=== PATIENT | male | born 1940 | race American Indian/Alaskan Native ===

== ENCOUNTER 2018-06-25 01:05 | Emergency (ER) | payer MEDICARE ==
[2018-06-25] MEDS ORDERED: SILVER NITRATE TP ONE (01:12)
--- NOTE | 2018-06-25 01:13 | Emergency Department Report ---
ED General Adult HPI - General Chief complaint: Medical Clearance Stated complaint: BLEEDING Time Seen by Provider: 06/25/18 01:13 Source: patient, EMS (verbal report received from EMS.ems notes not available at time of chart dictation), RN notes reviewed, old records reviewed Mode of arrival: Stretcher Limitations: Other (patient is a poor historian and has difficulty with hearing) - History of Present Illness Initial comments: This is a 77-year-old gentleman, unknown to this provider previously, on dialysis, reportedly Friday, Friday as per EMS, reported last dialysis session was yes, Friday, presenting to the emergency room with bleeding from left upper extremity fistula. The patient endorses no complaints at this time. In the emergency room, direct gentle pressure is applied to the bleeding fistula, which has a pinpoint area of bleeding. After 5 minutes of gentle direct digital pressure, leading resolved, and a 2 x 2 dressing is applied, with gentle cling wrap. Patient endorses no other complaints. -: Sudden Location: left, upper extremity Consistency: now resolved Improves with: other Associated Symptoms: denies other symptoms - Related Data Allergies Allergy/AdvReac Type Severity Reaction Status Date / Time No Known Allergies Allergy Unverified 06/19/18 18:01 ED Review of Systems ROS: Stated complaint: BLEEDING Other details as noted in HPI Constitutional: denies: fever Eyes: denies: vision change ENT: denies: epistaxis Respiratory: denies: cough Cardiovascular: denies: chest pain Gastrointestinal: denies: abdominal pain Genitourinary: denies: dysuria Musculoskeletal: denies: arthralgia Skin: denies: lesions Neurological: denies: weakness ED Past Medical Hx - Past Medical History Hx Hypertension: Yes Hx Congestive Heart Failure: No Hx Renal Disease: Yes (HD MWF) Additional medical history: afib on Coumadin - Surgical History Additional Surgical History: Hemodialysis shunt - Social History Smoking Status: Never Smoker Substance Use Type: None ED Physical Exam - General Limitations: Other (patient is a poor historian.) General appearance: alert, in no apparent distress - Head Head exam: Present: atraumatic, normocephalic - Eye Eye exam: Present: normal appearance, EOMI. Absent: nystagmus - ENT ENT exam: Present: normal exam, normal orophraynx, mucous membranes moist, n ormal external ear exam - Neck Neck exam: Present: normal inspection, full ROM. Absent: tenderness, meningismus - Respiratory Respiratory exam: Present: normal lung sounds bilaterally. Absent: respiratory distress - Cardiovascular Cardiovascular Exam: Present: regular rate, normal rhythm, normal heart sounds. Absent: bradycardia, tachycardia, irregular rhythm, systolic murmur, diastolic murmur, rubs, gallop - GI/Abdominal GI/Abdominal exam: Present: soft. Absent: distended, tenderness, guarding, rebound, rigid, pulsatile mass - Rectal Rectal exam: Present: deferred - Extremities Exam Extremities exam: Present: normal inspection (there is a left upper extremity fistula, pulsatile, nontender, with no redness, pus or streaking. Initially oozing, this is resolved with application of gentle direct digital pressure.), full ROM, other (2+ pulses noted in the bilateral upper, lower extremities. Compartments soft. No long bony tenderness. The pelvis is stable.). Absent: joint swelling, calf tenderness - Back Exam Back exam: Present: normal inspection, full ROM. Absent: tenderness, CVA tenderness (R), paraspinal tenderness, vertebral tenderness - Neurological Exam Neurological exam: Present: alert, other (Extraocular movements intact. Tongue midline. No facial droop. Facial sensation intact to light touch in the V1, V2, V3 distribution bilaterally. 5 and 5 strength in 4 extremities.. Sensation is intact to light touch in 4 extremities.). Absent: motor sensory deficit - Psychiatric Psychiatric exam: Present: normal affect, normal mood - Skin Skin exam: Present: warm, dry, intact, normal color. Absent: rash ED Course Vital Signs 06/25/18 06/25/18 01:17 01:18 Temperature 98.7 F 98.7 F Pulse Rate 70 70 Respiratory 20 20 Rate Blood Pressure 119/68 Blood Pressure 119/68 [Right] O2 Sat by Pulse 97 96 Oximetry ED Medical Decision Making - Lab Data Result diagrams: 06/25/18 01:21 06/25/18 01:21 Vital Signs 06/25/18 06/25/18 01:17 01:18 Temperature 98.7 F 98.7 F Pulse Rate 70 70 Respiratory 20 20 Rate Blood Pressure 119/68 Blood Pressure 119/68 [Right] O2 Sat by Pulse 97 96 Oximetry Lab Results 06/25/18 06/25/18 06/25/18 Range/Units 01:21 01:21 01:21 WBC 3.8 L (4.5-11.0) K/mm3 RBC 4.35 (3.65-5.03) M/mm3 Hgb 11.9 (11.8-15.2) gm/dl Hct 36.6 (35.5-45.6) % MCV 84 (84-94) fl MCH 27 L (28-32) pg MCHC 32 (32-34) % RDW 16.0 H (13.2-15.2) % Plt Count 104 L (140-440) K/mm3 PT 16.4 H (12.2-14.9) Sec. INR 1.24 H (0.87-1.13) APTT 29.7 (24.2-36.6) Sec. Sodium 141 (137-145) mmol/L Potassium 4.1 (3.6-5.0) mmol/L Chloride 96.3 L (98-107) mmol/L Carbon Dioxide 29 (22-30) mmol/L Anion Gap 20 mmol/L BUN 32 H (9-20) mg/dL Creatinine 4.8 H (0.8-1.5) mg/dL Estimated GFR 14 ml/min BUN/Creatinine Ratio 7 % Glucose 293 H (75-100) mg/dL Calcium 9.0 (8.4-10.2) mg/dL - Medical Decision Making Differential diagnosis, including not limited to: Thrombocytopenia, platelet dysfunction, supratherapeutic INR, uremic platelet dysfunction, resolved AV fistula bleeding Assessment and plan: 77-year-old gentleman with chronic-appearing laboratory abnormalities, no evidence of hyperkalemia or uremic encephalopathy, with resolved AV fistula bleeding. Patient is reassessed multiple times while here in the emergency department, he is afebrile, with reassuring vital signs, he appears to be in no acute distress, and his bleeding has subsequently resolved. The patient is medically suitable for discharge back to his halfway facility at this time. Critical care attestation.: If time is entered above; I have spent that time in minutes in the direct care of this critically ill patient, excluding procedure time. ED Disposition Clinical Impression: Hemorrhage of arteriovenous fistula Disposition: TO HOME OR SELFCARE Is pt being admited?: No Does the pt Need Aspirin: No Condition: Good Additional Instructions: Continue outpatient medications. Follow-up with your primary care doctor within the next 2 weeks. Follow up for dialysis on Friday as scheduled. If bleeding reoccurs, please apply gentle pressure with the tip of the fingertip, for 5-10 minutes. This typically decreases or stops bleeding. Please return to the emergency room right away with new, worsening or different symptoms. Referrals: ROBBI ARAUJO MD [Staff Physician] - 3-5 Days [facility] [Provider Group] - 3-5 Days
[2018-06-25 01:43] LABS: Hematocrit 36.6 % (35.5-45.6); Hemoglobin 11.9 gm/dl (11.8-15.2); Mean Corpuscular HGB Conc 32 % (32-34); Mean Corpuscular Volume 84 fl (84-94); Platelet Count 104 K/mm3 (140-440); Red Blood Count 4.35 M/mm3 (3.65-5.03)
[2018-06-25 01:57] LABS: INR 1.24 (0.87-1.13)
[2018-06-25 01:58] LABS: Partial Thromboplastin Time 29.7 Sec. (24.2-36.6)
[2018-06-25 03:12] VITALS: BP 153/80
== END 2018-06-25 03:39 | disposition home or self-care (01) ==
LOC: EDBD → ED 01:05
DX: T82.838A Hemorrhage due to vascular prosthetic devices, implants and grafts, initial encounter (principal); I12.0 Hypertensive chronic kidney disease with stage 5 chronic kidney disease or end stage renal disease; N18.6 End stage renal disease; Z99.2 Dependence on renal dialysis; Y92.89 Other specified places as the place of occurrence of the external cause
CPT/HCPCS: 36415; 80048; 85027; 85610; 85730

== ENCOUNTER 2018-09-16 22:46 | Observation (INO) | payer MEDICARE ==
--- NOTE | 2018-09-16 23:24 | Emergency Department Report ---
HPI - General Chief Complaint: Medical Clearance Time Seen by Provider: 09/16/18 23:05 - HPI HPI: 77-year-old -[place] male presents to the emergency department via EMS from home secondary to some bleeding from his left upper extremity AV fistula. The patient has end-stage renal disease on hemodialysis on Friday/Friday/Friday and did complete dialysis today. He says that there is no bleeding at the time he left dialysis but started bleeding at home. EMS was called and they placed a pressure dressing over the fistula. By the time he is at the emergency department the fistula has only a pinpoint area of bleeding/oozing. The patient is unable to tell me the name of his flash oven operator but says he goes to a [facility]. He has no complaints of any chest pain, shortness of breath, fever, nausea, vomiting or edema. ED Past Medical Hx - Past Medical History Previous Medical History?: Yes Hx Hypertension: Yes Hx Congestive Heart Failure: No Hx Renal Disease: Yes (HD MWF) Additional medical history: afib on Coumadin - Surgical History Past Surgical History?: Yes Additional Surgical History: Hemodialysis shunt - Social History Smoking Status: Never Smoker Substance Use Type: None ED Review of Systems ROS: Stated complaint: BLEEDING FROM DIALYSIS PORT Other details as noted in HPI Comment: All other systems reviewed and negative Constitutional: denies: chills, fever Eyes: denies: eye pain, vision change ENT: denies: ear pain, throat pain Respiratory: denies: cough, shortness of breath Cardiovascular: denies: chest pain, palpitations Gastrointestinal: denies: abdominal pain, vomiting Musculoskeletal: denies: back pain, arthralgia Skin: denies: rash, pruritus Neurological: denies: headache, weakness Hematological/Lymphatic: easy bleeding. denies: swollen glands Physical Exam - Physical Exam Vital Signs: Vital Signs 09/16/18 09/16/18 23:06 23:10 Temperature 98 F Pulse Rate 85 Respiratory 15 15 Rate Blood Pressure 153/76 Blood Pressure 153/76 [Right] O2 Sat by Pulse 91 91 Oximetry Physical Exam: GENERAL: The patient is well-developed well-nourished. HENT: Normocephalic. Atraumatic. Patient has moist mucous membranes. EYES: Extraocular motions are intact. NECK: Supple. Trachea is midline. CHEST/LUNGS: Clear to auscultation. There is no respiratory distress noted. HEART/CARDIOVASCULAR: Regular. There is no tachycardia. There is no murmur. ABDOMEN: Abdomen is soft, nontender. Patient has normal bowel sounds. There is no abdominal distention. SKIN: Skin is warm and dry. NEURO: The patient is awake, alert, and cooperative. The patient has no focal neurologic deficits. The patient has normal speech. MUSCULOSKELETAL: There is no tenderness or deformity. There is no limitation range of motion. There is a left upper extremity AV fistula that has an aneurysm but there is a palpable thrill and audible home. There is a punctate area of bleeding seen. ED Course Vital Signs 09/16/18 09/16/18 23:06 23:10 Temperature 98 F Pulse Rate 85 Respiratory 15 15 Rate Blood Pressure 153/76 Blood Pressure 153/76 [Right] O2 Sat by Pulse 91 91 Oximetry - Consultations Consultation #1: 09/17/18 04:19 I spoke with the flash oven operator on-call, Dr. Dozier, who says that they are happy to consult on the patient but the patient should have a vascular consult regarding the bleeding fistula. ED Medical Decision Making - Lab Data Result diagrams: 09/16/18 23:25 09/16/18 23:25 - Medical Decision Making This patient presents to the emergency department with a complaint of bleeding from his left upper extremity AV fistula. At the time of examination there is only a small punctate area of bleeding. 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 Labs show supratherapeutic INR at 5.5. Patient will be admitted to the hospital for further evaluation and treatment. Care was assumed by the hospitalist, Dr Boone. Critical Care Time: No Critical care attestation.: If time is entered above; I have spent that time in minutes in the direct care o f this critically ill patient, excluding procedure time. ED Disposition Clinical Impression: Supratherapeutic INR, ESRD on dialysis Hypertension Qualifiers: Hypertension type: essential hypertension Qualified Code(s): I10 - Essential (primary) hypertension Bleeding from dialysis shunt Qualifiers: Encounter type: initial encounter Qualified Code(s): T82.838A - Hemorrhage due to vascular prosthetic devices, implants and grafts, initial encounter Disposition: OP ADMIT IP TO THIS HOSP Is pt being admited?: Yes Condition: Stable Time of Disposition: 04:31
[2018-09-16 23:42] LABS: Hematocrit 33.8 % (35.5-45.6); Hemoglobin 10.7 gm/dl (11.8-15.2); Mean Corpuscular HGB Conc 32 % (32-34); Mean Corpuscular Volume 81 fl (84-94); Platelet Count 135 K/mm3 (140-440); Red Blood Count 4.17 M/mm3 (3.65-5.03); Red Cell Distribution Width 18.4 % (13.2-15.2)
[2018-09-17 00:07] LABS: Calcium 8.9 mg/dL (8.4-10.2)
[2018-09-17 00:44] LABS: INR 5.59 (0.87-1.13)
[2018-09-17] MEDS ORDERED: TYLENOL PO PRN (01:21)
[2018-09-17] MEDS ORDERED: ZOFRAN IV PRN (01:21)
[2018-09-17] MEDS ORDERED: SODIUM CHLORIDE FLUSH SYRINGE 10 ML IV PRN (01:21)
--- NOTE | 2018-09-17 01:28 | History and Physical Report ---
History of Present Illness Chief complaint: I have bleeding from my av grafts History of present illness: 77-year-old man who presents with pinpoint bleeding from AV graft that began after dialysis. States that it wasn't a large amount of blood. He denies dizziness, weakness or shortness of breath. He takes blood thinner for stroke prophylaxis as he has chronic atrial fibrillation Past medical history; A. fib, end-stage renal disease on hemodialysis Past surgical history; AV graft placement Family history; noncontributory Social history; denies illicit drug use alcohol or tobacco; lives at home Medications and Allergies Allergies Allergy/AdvReac Type Severity Reaction Status Date / Time No Known Allergies Allergy Unverified 06/19/18 18:01 Review of Systems All systems: negative Constitutional: no anorexia Ears, nose, mouth and throat: no ear pain Cardiovascular: no chest pain Respiratory: no cough Gastrointestinal: no abdominal pain Genitourinary Male: no dysuria Rectal: no pain Musculoskeletal: no neck stiffness Integumentary: no rash Neurological: no head injury Psychiatric: no anxiety Endocrine: no cold intolerance Hematologic/Lymphatic: easy bleeding Allergic/Immunologic: no urticaria Exam - Constitutional Vitals: Temp Pulse Resp BP Pulse Ox 98 F 85 15 153/76 91 09/16/18 23:06 09/16/18 23:06 09/16/18 23:10 09/16/18 23:06 09/16/18 23:10 General appearance: Present: no acute distress, well-nourished - EENT Eyes: Present: PERRL ENT: hearing intact, clear oral mucosa - Neck Neck: Present: supple, normal ROM - Respiratory Respiratory effort: normal Respiratory: bilateral: CTA - Cardiovascular Heart Sounds: Present: S1 & S2. Absent: rub, click - Extremities Extremities: pulses symmetrical, No edema Peripheral Pulses: within normal limits - Abdominal General gastrointestinal: Present: soft, non-tender, non-distended, normal bowel sounds Male genitourinary: Present: normal - Integumentary Integumentary: Present: clear, warm, dry - Musculoskeletal Musculoskeletal: gait normal, strength equal bilaterally - Psychiatric Psychiatric: appropriate mood/affect, intact judgment & insight - Neurologic Neurologic: CNII-XII intact, moves all extremities Results - Labs CBC & Chem 7: 09/16/18 23:25 09/16/18 23:25 Labs: Laboratory Last Values WBC 3.7 K/mm3 (4.5-11.0) L 09/16/18 23:25 RBC 4.17 M/mm3 (3.65-5.03) 09/16/18 23:25 Hgb 10.7 gm/dl (11.8-15.2) L 09/16/18 23:25 Hct 33.8 % (35.5-45.6) L 09/16/18 23:25 MCV 81 fl (84-94) L 09/16/18 23:25 MCH 26 pg (28-32) L 09/16/18 23:25 MCHC 32 % (32-34) 09/16/18 23:25 RDW 18.4 % (13.2-15.2) H 09/16/18 23:25 Plt Count 135 K/mm3 (140-440) L 09/16/18 23:25 [place] % (Auto) Newspaper Publisher 09/16/18 23:25 PT 50.0 Sec. (12.2-14.9) H 09/16/18 23:25 INR 5.59 (0.87-1.13) H* 09/16/18 23:25 APTT 75.0 Sec. (24.2-36.6) H* 09/16/18 23:25 Sodium 141 mmol/L (137-145) 09/16/18 23:25 Potassium 4.4 mmol/L (3.6-5.0) 09/16/18 23:25 Chloride 96.1 mmol/L (98-107) L 09/16/18 23:25 Carbon Dioxide 29 mmol/L (22-30) 09/16/18 23:25 20 mmol/L 09/16/18 23:25 BUN 26 mg/dL (9-20) H 09/16/18 23:25 3.7 mg/dL (0.8-1.5) H 09/16/18 23:25 Estimated GFR 19 ml/min 09/16/18 23:25 7 % 09/16/18 23:25 Glucose 206 mg/dL (75-100) H 09/16/18 23:25 Calcium 8.9 mg/dL (8.4-10.2) 09/16/18 23:25 Assessment and Plan Assessment and plan: 77-year-old man with history of A. fib and end-stage renal disease who presents with pinpoint bleeding from AV graft after hemodialysis. Diagnoses Supratherapeutic INR/iatrogenic coagulopathy [place] bleeding from AVG A. fib with hypercoagulable state End-stage renal disease on hemodialysis Plan bleeding has now resolved Warfarin on hold, recheck INR in a.m. Continue home meds Dialysis per nephrology DVT prophylaxis; patient is fully anticoagulated
[2018-09-17 02:28] LABS: Basophils % (Manual) 0 % (0.0-1.8); Total Cells Counted 100
[2018-09-17 02:29] LABS: Anisocytosis 1+; Hypochromasia 1+; Platelet Estimate Consistent w Auto
[2018-09-17 08:18] LABS: INR 5.47 (0.87-1.13)
[2018-09-17] MEDS ORDERED: VITAMIN K *ORAL LIQUID PO NR (08:35)
[2018-09-17] MEDS: SODIUM CHLORIDE FLUSH SYRINGE 10 ML IV SCH ×2 (11:00→22:18)
--- NOTE | 2018-09-17 14:56 | Event Note ---
Date: 09/17/18 Patient was seen and evaluated this morning, patient was admitted for Coumadin toxicity. Patient had bleeding after dialysis. Patient was given vitamin K. We'll check INR tomorrow and normal will discharge.
--- NOTE | 2018-09-17 16:51 | Consultation ---
History of Present Illness - Reason for Consult Consult date: 09/17/18 end stage renal disease - History of Present Illness The patient is a 77 YO male with history significant for DM, HTN, A.fib and ESRd on hemodialysis (MWF) who presented to [facility] ED via EMS from home secondary to bleeding from his left upper extremity AV fistula. The patient is a very poor historian and there was no family member at the bedside. He was last dialyzed yesterday. He started bleeding at home, EMS was called and they placed a pressure dressing over the fistula. By the time he reached ED the fistula had only a pinpoint area of bleeding/oozing. He deneis any chest pain, shortness of breath, fever, nausea, vomiting, abd pain or leg edema. Nephrology was consulted to manage ESRD. Past History Past Medical History: atrial fib, diabetes, dialysis, ESRD, hyperlipidemia Medications and Allergies Allergies Allergy/AdvReac Type Severity Reaction Status Date / Time No Known Allergies Allergy Unverified 06/19/18 18:01 Active Meds: Active Medications Acetaminophen (Tylenol) 650 mg PO Q4H PRN PRN Reason: Pain MILD(1-3)/Fever >100.5/OLIVAS Ondansetron HCl (Zofran) 4 mg IV Q8H PRN PRN Reason: Nausea And Vomiting Sodium Chloride (Sodium Chloride Flush Syringe 10 Ml) 10 ml IV BID DOMENICA Sodium Chloride (Sodium Chloride Flush Syringe 10 Ml) 10 ml IV PRN PRN PRN Reason: LINE FLUSH Review of Systems ROS unobtainable: due to mental status Exam - Vital Signs Vital signs: Vital Signs Pulse Resp Pulse Ox 86 10 L 72 L 09/16/18 23:00 09/16/18 23:00 09/16/18 23:00 - General Appearance General appearance: well-developed, appears stated age, other (no distress, emaciated) EENT: ATNC, PERRL, hearing intact, vision intact Neck: Present: neck supple, trachea midline Respiratory: Clear to Ascultation Heart: S1S2, no murmurs Gastrointestinal: Present: normoactive bowel sounds. Absent: tenderness, distended Integumentary: no rash, warm and dry Neurologic: no focal deficit, no asterixis, confused, disoriented Musculoskeletal: Present: other (no edema, L arm AVF, no active bleeding) Results - Lab Results 09/16/18 23:25 09/16/18 23:25 Most recent lab results Calcium 8.9 mg/dL (8.4-10.2) 09/16/18 23:25 Assessment and Plan 1. ESRD: Continue hemodialysis three times a week, MWF schedule. Next HD tomorrow. 2. Bleeding AVF: Likely from supra therapeutic INR. Bleeding stopped now. Monitor. 3. Anemia: Monitor. 4. Paroxysmal A.fib: Coumadin on hold. 5. DM. 6. HTN.
[2018-09-18 06:45] LABS: INR 2.4 (0.87-1.13)
[2018-09-18 07:09] LABS: Basophils % (Auto) 1.1 % (0.0-1.8); Eosinophils # (Auto) 0.1 K/mm3 (0.0-0.4); Hematocrit 31.6 % (35.5-45.6); Lymphocytes # (Auto) 0.8 K/mm3 (1.2-5.4); Lymphocytes % (Auto) 21.1 % (13.4-35.0); Mean Corpuscular HGB Conc 32 % (32-34); Mean Corpuscular Volume 82 fl (84-94); Monocytes # (Auto) 0.6 K/mm3 (0.0-0.8); Monocytes % (Auto) 15.4 % (0.0-7.3); Platelet Count 111 K/mm3 (140-440); Red Blood Count 3.85 M/mm3 (3.65-5.03); Red Cell Distribution Width 18.2 % (13.2-15.2)
--- NOTE | 2018-09-18 08:48 | Progress Note ---
Assessment and Plan 1. ESRD: Continue hemodialysis three times a week, MWF schedule. HD today. 2. Bleeding AVF: Likely from supra therapeutic INR. Bleeding stopped now. Monitor. 3. Anemia: Epogen with HD. 4. Paroxysmal A.fib: Coumadin on hold. INR is therapeutic. 5. DM. 6. HTN. Subjective Date of service: 09/18/18 Interval history: Patient was seen and examined at the bedside. Objective - Vital Signs Vital signs: Vital Signs - 12hr 09/17/18 09/18/18 09/18/18 22:00 02:35 07:41 Temperature 98.1 F 98.9 F Pulse Rate 82 84 79 Respiratory 20 18 20 Rate Blood Pressure 180/81 168/77 O2 Sat by Pulse 93 92 89 Oximetry - General Appearance General appearance: well-developed, well-nourished, appears stated age, other (no distress) EENT: ATNC, PERRL Neck: supple Respiratory: Present: Clear to Ascultation Cardiology: S1S2, no murmurs Gastrointestinal: normoactive bowel sounds, no tenderness, no distended Integumentary: no rash, warm and dry Neurologic: disoriented, other (able to move extremities) Musculoskeletal: other (no edema, L arm AVF with no e/o bleeding) - Lab 09/18/18 04:39 09/16/18 23:25 Most recent lab results Calcium 8.9 mg/dL (8.4-10.2) 09/16/18 23:25 Medications & Allergies - Medications Allergies/Adverse Reactions: Allergies No Known Allergies Allergy (Unverified 06/19/18 18:01) Active Medications: Generic Name Dose Route Start Last Admin Trade Name Freq PRN Reason Stop Dose Admin Acetaminophen 650 mg 09/17/18 01:21 Tylenol PO Q4H PRN Pain MILD(1-3)/Fever >100.5/OLIVAS Ondansetron HCl 4 mg 09/17/18 01:21 Zofran IV Q8H PRN Nausea And Vomiting Sodium Chloride 10 ml 09/17/18 10:00 09/17/18 22:18 Sodium Chloride Flush Syringe 10 Ml IV 10 ml BID DOMENICA Administration Sodium Chloride 10 ml 09/17/18 01:21 Sodium Chloride Flush Syringe 10 Ml IV PRN PRN LINE FLUSH
[2018-09-18] MEDS ORDERED: NACL 0.9% 100 ML IV PRN ×2 (08:49→09:50)
[2018-09-18] MEDS ORDERED: PROCRIT SUB-Q PRN (09:00)
--- NOTE | 2018-09-18 09:42 | Discharge Summary ---
Providers - Providers Date of Admission: 09/17/18 01:21 Attending physician: RUBEN DELEON MD 09/17/18 01:21 Consult to Physician [CONS] Routine Comment: FROY Consulting Provider: ROBBI ARAUJO Physician Instructions: WAS NOTIFIED Reason For Exam: esrd 09/17/18 09:34 Physical Therapy Evaluation and Treat [CONS] Routine Comment: Reason For Exam: Weakness [facility] Reason for admission: warfarin toxicity, ESRD on HD Condition: Stable Hospital course: 77-year-old man who presents with pinpoint bleeding from AV graft that began after dialysis. States that it wasn't a large amount of blood. He denies dizziness, weakness or shortness of breath. He takes blood thinner for stroke prophylaxis as he has chronic atrial fibrillation INR is 2.4 this morning, no bleeding. Patient can go home after dialysis patient and family told me he has been taking medications in the alf and no medications were reconciled and i advice the patient to restart his usual medications when he went back to SNF and call PCP for his warfarin. I don't know how much he was taking. Disposition: [id number]/TX-03 SNF W [facility] Time spent for discharge: 32 minutes - Discharge Diagnoses (1) Bleeding from dialysis shunt Status: Acute Qualifiers: Encounter type: initial encounter Qualified Code(s): T82.838A - Hemorrhage due to vascular prosthetic devices, implants and grafts, initial encounter (2) ESRD on dialysis Status: Acute (3) Hypertension Status: Acute Qualifiers: Hypertension type: essential hypertension Qualified Code(s): I10 - Essential (primary) hypertension (4) Supratherapeutic INR Status: Acute Core Measure Documentation - Palliative Care Palliative Care/ Comfort Measures: Not Applicable - Core Measures Any of the following diagnoses?: none Exam - Constitutional Vitals: Temp Pulse Resp BP Pulse Ox 98.9 F 79 20 168/77 89 09/18/18 07:41 09/18/18 07:41 09/18/18 07:41 09/18/18 07:41 09/18/18 07:41 General appearance: Present: no acute distress, well-nourished - EENT Eyes: Present: PERRL ENT: hearing intact, clear oral mucosa - Neck Neck: Present: supple, normal ROM - Respiratory Respiratory effort: normal Respiratory: bilateral: CTA - Cardiovascular Heart Sounds: Present: S1 & S2. Absent: rub, click - Extremities Extremities: pulses symmetrical, No edema - Abdominal General gastrointestinal: Present: soft, non-tender, non-distended, normal bowel sounds - Integumentary Integumentary: Present: clear, warm, dry - Neurologic Neurologic: CNII-XII intact, moves all extremities - Allied Health Allied health notes reviewed: nursing, social work, case management Plan Activity: no restrictions Weight Bearing Status: Weight Bear as Tolerated Diet: low salt, renal Follow up with: HANNAH BOO MD [Primary Care Provider] - 7 Days
[2018-09-18] MEDS: SODIUM CHLORIDE FLUSH SYRINGE 10 ML IV SCH (09:49)
[2018-09-18 12:26] LABS: Hepatitis B Surface Antigen Non-Reactive (Negative); Hepatitis C Virus Antibody Non-Reactive (NonReactive)
[2018-09-18] MEDS ORDERED: NACL 0.9 (PRIMING MACHINE ONLY DIALYSIS) MC ONE (16:02)
[2018-09-18] MEDS ORDERED: APRESOLINE IV PRN (17:04)
[2018-09-18 17:59] VITALS: BP 129/69
== END 2018-09-18 18:04 ==
LOC: EDBD → ED 22:46 → 2B-ACE 09-17 01:21
PROVIDERS: ADMIT Internal Medicine; ATTEND Internal Medicine
DX: R79.1 Abnormal coagulation profile (principal); I48.91 Unspecified atrial fibrillation; I12.0 Hypertensive chronic kidney disease with stage 5 chronic kidney disease or end stage renal disease; E11.22 Type 2 diabetes mellitus with diabetic chronic kidney disease; N18.6 End stage renal disease; D64.9 Anemia, unspecified; T82.838A Hemorrhage due to vascular prosthetic devices, implants and grafts, initial encounter; I48.0 Paroxysmal atrial fibrillation; Z95.828 Presence of other vascular implants and grafts; Z79.899 Other long term (current) drug therapy; Z99.2 Dependence on renal dialysis
CPT/HCPCS: 36415; 80048; 80074; 85007; 85025; 85610; 85730; 96374; 99284; G0257; G0378; J0360; J7030; J3430

== ENCOUNTER 2020-06-21 15:22 | Inpatient (IN) | payer MEDICARE, OTHER ==
[2020-06-21] MEDS ORDERED: ONDANSETRON 4 MG/2 ML INJ IV ONE (16:32)
[2020-06-21] MEDS ORDERED: MORPHINE 4 MG/1 ML INJ IV ONE (16:32)
[2020-06-21 16:54] LABS: Basophils # (Auto) 0.1 K/mm3 (0.0-0.1); Eosinophils # (Auto) 0.1 K/mm3 (0.0-0.4); Eosinophils % (Auto) 1.3 % (0.0-4.3); Hematocrit 34.6 % (35.5-45.6); Hemoglobin 11.2 gm/dl (11.8-15.2); Lymphocytes # (Auto) 0.6 K/mm3 (1.2-5.4); Lymphocytes % (Auto) 11.2 % (13.4-35.0); Mean Corpuscular HGB Conc 33 % (32-34); Mean Corpuscular Volume 88 fl (84-94); Monocytes # (Auto) 0.7 K/mm3 (0.0-0.8); Monocytes % (Auto) 13.6 % (0.0-7.3); Platelet Count 121 K/mm3 (140-440); Red Blood Count 3.94 M/mm3 (3.65-5.03); Red Cell Distribution Width 15.9 % (13.2-15.2)
--- NOTE | 2020-06-21 17:06 | Emergency Department Report ---
ED Abdominal Pain HPI - General Chief Complaint: Nausea/Vomiting/Diarrhea Stated Complaint: BODY ACHES Time Seen by Provider: 06/21/20 16:11 Source: EMS Mode of arrival: Stretcher Limitations: Physical Limitation - History of Present Illness Initial Comments: 79-year-old male with a past medical history of dementia, end-stage renal disease currently on dialysis (Friday, Friday, Friday), CVA x3, diabetes, hypertension, atrial fibrillation and atrial fibrillation presents to the hospital with complaints of abdominal pain times several days. Patient complains of mid and lower abdominal pain for the last several days with diarrhea. Patient denies nausea, vomiting, or fever. He missed his dialysis today secondary to his symptoms. He denies shortness of breath Or previous abdominal surgeries. Patient is alert and oriented x3. His current residence is he currently resides in a [facility]. Patient states he does not make urine - Related Data Home Medications Medication Instructions Recorded Confirmed Last Taken Cholecalciferol Vit D3 [Vitamin D3 1,000 unit PO QDAY 05/19/19 05/19/19 Unknown 1,000 UNIT TAB] Insulin Aspart (Nf) [NovoLOG 3 unit SQ TID 05/19/19 05/19/19 Unknown Flexpen] Insulin Glargine,Hum.rec.anlog 4 unit SQ HS 05/19/19 05/19/19 Unknown [Basaglar Buddyikpen U-100] Sevelamer Carbonate [Renvela] 800 mg PO TIDWM 05/19/19 05/19/19 Unknown Previous Rx's Medication Instructions Recorded Last Taken Type Apixaban [Eliquis] 2.5 mg PO BID tablet 05/22/19 Unknown Rx Apixaban [Eliquis] 5 mg PO QDAY #30 05/22/19 Unknown Rx AtorvaSTATin 40 mg PO DAILY #05/22/19 Unknown Rx AtorvaSTATin [Lipitor] 40 mg PO QHS tablet 05/22/19 Unknown Rx Clopidogrel [Plavix] 75 mg PO QDAY #30 05/22/19 Unknown Rx Folic Acid 1 mg PO DAILY #30 05/22/19 Unknown Rx Hydralazine HCl 50 mg PO TID #90 05/22/19 Unknown Rx ISOSORBIDE MONOnitrate [Imdur ER] 30 mg PO DAILY #30 05/22/19 Unknown Rx Insulin Glargine [Lantus VIAL] 4 units SUB-Q QHS units 05/22/19 Unknown Rx amLODIPine 5 mg PO DAILY #30 05/22/19 Unknown Rx carvediloL [Coreg] 12.5 mg PO BID #60 05/22/19 Unknown Rx lisinopriL [Zestril TAB] 20 mg PO QDAY #30 05/22/19 Unknown Rx Allergies Allergy/AdvReac Type Severity Reaction Status Date / Time No Known Allergies Allergy Unverified 06/19/18 18:01 ED Review of Systems ROS: Stated complaint: BODY ACHES Other details as noted in HPI ED Past Medical Hx - Past Medical History Hx Hypertension: Yes Hx CVA: Yes (x3) Hx Congestive Heart Failure: No Hx Diabetes: Yes Hx Renal Disease: Yes (HD MWF) Additional medical history: afib on Coumadin - Surgical History Additional Surgical History: Hemodialysis shunt Left upper arm - Social History Smoking Status: Never Smoker Substance Use Type: None - Medications Home Medications: Home Medications Medication Instructions Recorded Confirmed Last Taken Type Cholecalciferol Vit D3 [Vitamin D3 1,000 unit PO QDAY 05/19/19 05/19/19 Unknown History 1,000 UNIT TAB] Insulin Aspart (Nf) [NovoLOG 3 unit SQ TID 05/19/19 05/19/19 Unknown History Flexpen] Insulin Glargine,Hum.rec.anlog 4 unit SQ HS 05/19/19 05/19/19 Unknown History [Basaglar Kwikpen U-100] Sevelamer Carbonate [Renvela] 800 mg PO TIDWM 05/19/19 05/19/19 Unknown History Apixaban [Eliquis] 2.5 mg PO BID tablet 05/22/19 Unknown Rx Apixaban [Eliquis] 5 mg PO QDAY #30 05/22/19 Unknown Rx AtorvaSTATin 40 mg PO DAILY #30 05/22/19 Unknown Rx AtorvaSTATin [Lipitor] 40 mg PO QHS tablet 05/22/19 Unknown Rx Clopidogrel [Plavix] 75 mg PO QDAY #30 05/22/19 Unknown Rx Folic Acid 1 mg PO DAILY #30 05/22/19 Unknown Rx Hydralazine HCl 50 mg PO TID #90 05/22/19 Unknown Rx ISOSORBIDE MONOnitrate [Imdur ER] 30 mg PO DAILY #30 05/22/19 Unknown Rx Insulin Glargine [Lantus VIAL] 4 units SUB-Q QHS units 05/22/19 Unknown Rx amLODIPine 5 mg PO DAILY #30 05/22/19 Unknown Rx carvediloL [Coreg] 12.5 mg PO BID #60 05/22/19 Unknown Rx lisinopriL [Zestril TAB] 20 mg PO QDAY #30 05/22/19 Unknown Rx ED Physical Exam - General Limitations: Physical Limitation - Other Other exam information: General: No acute distress Head: Atraumatic Eyes: normal appearance ENT: Moist mucous membranes Neck: Normal appearance, no midline tenderness Chest: Clear to auscultation bilaterally CV: Normal rate Abdomen: Soft, normal bowel sounds, mid and lower abdominal tenderness to palpation, nondistended, no rebound or guarding Back: Normal inspection Extremity: Normal inspection, full range of motion Neuro: Alert O x 3, no facial asymmetry, speech clear, equal handgrip and foot dorsiflexion Psych: Appropriate behavior Skin: No rash ED Course Vital Signs 06/21/20 06/21/20 06/21/20 15:37 15:42 15:45 Temperature 97.8 F Pulse Rate 75 Respiratory 22 24 Rate Blood Pressure 135/61 135/61 O2 Sat by Pulse 96 47 L 98 Oximetry 06/21/20 06/21/20 06/21/20 16:01 16:15 16:31 Temperature Pulse Rate 76 83 77 Respiratory 18 21 19 Rate Blood Pressure 132/58 124/62 140/56 O2 Sat by Pulse 93 93 91 Oximetry 06/21/20 06/21/20 06/21/20 16:51 17:01 17:45 Temperature Pulse Rate 77 88 73 Respiratory 15 20 20 Rate Blood Pressure 130/62 137/61 106/50 O2 Sat by Pulse 94 91 99 Oximetry - Reevaluation(s) Reevaluation #1: 06/21/20 17:38 pt noted by myself to be desatting after Morphine, Pt is mildly lethargic but arousable to touch. Pt is drowsy nasal cannula o2 applied. - Consultations Consultation #1: 06/21/20 19:[address] Robles soft top installer. Patient does have chest x-ray findings of CHF and has some desaturation after receiving morphine while sleeping. Patient will be admitted for observation to receive dialysis in the morning prior to discharge. ED Medical Decision Making - Lab Data Result diagrams: 06/21/20 16:33 06/21/20 16:33 Lab Results 06/21/20 06/21/20 Range/Units 16:33 16:33 WBC 5.3 (4.5-11.0) K/mm3 RBC 3.94 (3.65-5.03) M/mm3 Hgb 11.2 L (11.8-15.2) gm/dl Hct 34.6 L (35.5-45.6) % MCV 88 (84-94) fl MCH 29 (28-32) pg MCHC 33 (32-34) % RDW 15.9 H (13.2-15.2) % Plt Count 121 L (140-440) K/mm3 Lymph % (Auto) 11.2 L (13.4-35.0) % [place] % (Auto) 13.6 H (0.0-7.3) % Eos % (Auto) 1.3 (0.0-4.3) % Baso % (Auto) 1.0 (0.0-1.8) % Lymph # (Auto) 0.6 L (1.2-5.4) K/mm3 [place] # (Auto) 0.7 (0.0-0.8) K/mm3 Eos # (Auto) 0.1 (0.0-0.4) K/mm3 Baso # (Auto) 0.1 (0.0-0.1) K/mm3 Seg Neutrophils % 72.9 H (40.0-70.0) % Seg Neutrophils # 3.9 (1.8-7.7) K/mm3 Sodium 141 (137-145) mmol/L Potassium 4.1 (3.6-5.0) mmol/L Chloride 101.0 (98-107) mmol/L Carbon Dioxide 26 (22-30) mmol/L Anion Gap 18 mmol/L BUN 53 H (9-20) mg/dL Creatinine 5.5 H (0.8-1.3) mg/dL Estimated GFR 12 ml/min BUN/Creatinine Ratio 10 % Glucose 165 H (75-100) mg/dL Calcium 8.8 (8.4-10.2) mg/dL Total Bilirubin 0.30 (0.1-1.2) mg/dL AST 16 (5-40) units/L ALT 9 (7-56) units/L Alkaline Phosphatase 105 (35-129) units/L Total Protein 6.1 L (6.3-8.2) g/dL Albumin 3.9 (3.9-5) g/dL Albumin/Globulin Ratio 1.8 % Lipase 31 (13-60) units/L - Radiology Data Radiology results: report reviewed CT ABDOMEN AND PELVIS WITHOUT CONTRAST HISTORY: Diarrhea and lower abdominal pain. COMPARISON: None TECHNIQUE: Routine abdominal and pelvic CT exam performed without contrast. Lack of intravenous contrast limits evaluation of the vascular and solid organs.. All CT scans at this location are performed using CT dose reduction for ALARA by means of automated exposure con trol. FINDINGS: Exam is limited due to lack of IV contrast as well as high-density material in the colon. CT ABDOMEN: Lung Bases: There are small bilateral pleural effusions and passive atelectasis in both lung bases. Liver: No significant abnormality. Biliary: There are multiple stones in the gallbladder without evidence of acute cholecystitis. Spleen: No significant abnormality. Unenlarged. Pancreas: No significant abnormality. Adrenals: No significant abnormality. Kidneys: Both kidneys are shrunken and atrophic with multiple calcifications and cysts suggesting chronic medical renal disease. Lymphatics: No lymphadenopathy. Vasculature: Abdominal aortic and branch vessel atherosclerotic calcifications without aortic aneurysm. Bowel/Peritoneum: There is a small volume of ascites in the abdomen. There is a moderate volume of stool in the colon. There is no appreciable free air, obstruction, or other acute abnormality. CT PELVIC: : No significant abnormality. Lymphatics: No lymphadenopathy. Osseous Structures: No aggressive appearing osseous lesions. Diffuse heterogeneous sclerosis in the bones with multilevel degenerative findings in the thoracolumbar spine suggest renal osteodystrophy. Additional Findings: None IMPRESSION: 1. Limited exam due to lack of IV contrast and high density material in the colon. 2. Small bilateral pleural effusions. 3. Cholelithiasis without evidence of acute cholecystitis. 4. Diffuse atherosclerotic calcifications. 5. Small volume ascites in the abdomen and moderate volume stool in the colon without obstruction or free air. 6. Osseous findings suggesting renal osteodystrophy. XR chest 1V ap INDICATION / CLINICAL INFORMATION: missed dialysis. COMPARISON: 05/19/2019 FINDINGS: SUPPORT DEVICES: None. HEART /PULMONARY VASCULATURE: Cardiac enlargement with pulmonary vasculature congestion. LUNGS / PLEURA: Perihilar and right greater than left bibasilar opacities likely reflect a combination of atelectasis and edema. No lobar consolidation. No pleural effusion. No pneumothorax. ADDITIONAL FINDINGS: No significant additional findings. IMPRESSION: Volume overload/CHF with pulmonary edema. - Medical Decision Making 79-year-old male presents to the hospital with diarrhea and abdominal pain. CT does not show any acute surgical or infectious cause of pain. Patient did miss his dialysis today and chest x-ray shows findings of pulmonary edema. Patient did have some mild oxygen desaturation while in the ED requiring supplemental O2. Case discussed with soft top installer. Patient will be admitted to the hospital for observation and to receive dialysis tomorrow Critical Care Time: No Critical care attestation.: If time is entered above; I have spent that time in minutes in the direct care of this critically ill patient, excluding procedure time. ED Disposition Clinical Impression: Diarrhea, ESRD needing dialysis, Pulmonary edema Disposition: OP ADMIT IP TO THIS HOSP Is pt being admited?: Yes Condition: Stable Instructions: Pulmonary Edema (ED) Time of Disposition: 19:45 (Dr hardin/hosp admit to Dr Luong)
[2020-06-21 17:13] LABS: Albumin 3.9 g/dL (3.9-5); Calcium 8.8 mg/dL (8.4-10.2)
--- NOTE | 2020-06-21 17:23 | Cat Scan Report ---
CT ABDOMEN AND PELVIS WITHOUT CONTRAST HISTORY: Diarrhea and lower abdominal pain. COMPARISON: None TECHNIQUE: Routine abdominal and pelvic CT exam performed without contrast. Lack of intravenous cont rast limits evaluation of the vascular and solid organs.. All CT scans at this location are performed using CT dose reduction for ALARA by means of automated exposure control. FINDINGS: Exam is limited due to lack of IV contrast as well as high-density material in the colon. CT ABDOMEN: Lung Bases: There are small bilateral pleural effusions and passive atelectasis in both lung bases. Liver: No significant abnormality. Biliary: There are multiple stones in the gallbladder without evidence of acute cholecystitis. Spleen: No significant abnormality. Unenlarged. Pancreas: No significant abnormality. Adrenals: No significant abnormality. Kidneys: Both kidneys are shrunken and atrophic with multiple calcifications and cysts suggesting chr onic medical renal disease. Lymphatics: No lymphadenopathy. Vasculature: Abdominal aortic and branch vessel atherosclerotic calcifications without aortic aneurys m. Bowel/Peritoneum: There is a small volume of ascites in the abdomen. There is a moderate volume of st ool in the colon. There is no appreciable free air, obstruction, or other acute abnormality. CT PELVIC: : No significant abnormality. Lymphatics: No lymphadenopathy. Osseous Structures: No aggressive appearing osseous lesions. Diffuse heterogeneous sclerosis in the b ones with multilevel degenerative findings in the thoracolumbar spine suggest renal osteodystrophy. Additional Findings: None IMPRESSION: 1. Limited exam due to lack of IV contrast and high density material in the colon. 2. Small bilateral pleural effusions. 3. Cholelithiasis without evidence of acute cholecystitis. 4. Diffuse atherosclerotic calcifications. 5. Small volume ascites in the abdomen and moderate volume stool in the colon without obstruction or free air. 6. Osseous findings suggesting renal osteodystrophy. Signer Name: Wilmar Guerrero MD Signed: 06/21/2020 5:19 PM Workstation Name: [id number]
--- NOTE | 2020-06-21 18:57 | XRay Report ---
XR chest 1V ap INDICATION / CLINICAL INFORMATION: missed dialysis. COMPARISON: 05/19/2019 FINDINGS: SUPPORT DEVICES: None. HEART /PULMONARY VASCULATURE: Cardiac enlargement with pulmonary vasculature congestion. LUNGS / PLEURA: Perihilar and right greater than left bibasilar opacities likely reflect a combinatio n of atelectasis and edema. No lobar consolidation. No pleural effusion. No pneumothorax. ADDITIONAL FINDINGS: No significant additional findings. IMPRESSION: Volume overload/CHF with pulmonary edema. Signer Name: Bart Huynh MD Signed: 06/21/2020 6:52 PM Workstation Name: [id number]
[2020-06-21] MEDS ORDERED: ALBUTEROL 2.5 MG/3 ML NEBU IH PRN (21:33)
[2020-06-21] MEDS ORDERED: ONDANSETRON 4 MG/2 ML INJ IV PRN (21:33)
[2020-06-21] MEDS ORDERED: ACETAMINOPHEN 325 MG TAB PO PRN (21:33)
--- NOTE | 2020-06-21 21:42 | History and Physical Report ---
History of Present Illness Date of examination: 06/21/20 Date of admission: 06/21/20 19:45 Chief complaint: Nausea vomiting diarrhea History of present illness: 79-year-old male with a past medical history of dementia, end-stage renal disease currently on dialysis (Friday, Friday, Friday), CVA x3, diabetes, hypertension, atrial fibrillation and atrial fibrillation was brought to the hospital with complaints of abdominal pain times several days. Patient comp lains of mid and lower abdominal pain for the last several days with diarrhea. Patient denies nausea, vomiting, or fever. Patient missed dialysis today secondary to his symptoms. He denies shortness of breath Or previous abdominal surgeries. In the emergency room patient is found to have pulmonary edema. We already consulted nephrology for possible dialysis in the morning. Past History Past Medical History: diabetes, heart failure, renal failure, stroke Medications and Allergies Allergies Allergy/AdvReac Type Severity Reaction Status Date / Time No Known Allergies Allergy Unverified 06/19/18 18:01 Home Medications Medication Instructions Recorded Confirmed Last Taken Type Cholecalciferol Vit D3 [Vitamin D3 1,000 unit PO QDAY 05/19/19 05/19/19 Unknown History 1,000 UNIT TAB] Insulin Aspart (Nf) [NovoLOG 3 unit SQ TID 05/19/19 05/19/19 Unknown History Flexpen] Insulin Glargine,Hum.rec.anlog 4 unit SQ HS 05/19/19 05/19/19 Unknown History [Basaglar Kwikpen U-100] Sevelamer Carbonate [Renvela] 800 mg PO TIDWM 05/19/19 05/19/19 Unknown History Apixaban [Eliquis] 2.5 mg PO BID tablet 05/22/19 Unknown Rx Apixaban [Eliquis] 5 mg PO QDAY #30 05/22/19 Unknown Rx AtorvaSTATin 40 mg PO DAILY #30 05/22/19 Unknown Rx AtorvaSTATin [Lipitor] 40 mg PO QHS tablet 05/22/19 Unknown Rx Clopidogrel [Plavix] 75 mg PO QDAY #30 05/22/19 Unknown Rx Folic Acid 1 mg PO DAILY #30 05/22/19 Unknown Rx Hydralazine HCl 50 mg PO TID #90 05/22/19 Unknown Rx ISOSORBIDE MONOnitrate [Imdur ER] 30 mg PO DAILY #30 05/22/19 Unknown Rx Insulin Glargine [Lantus VIAL] 4 units SUB-Q QHS units 05/22/19 Unknown Rx amLODIPine 5 mg PO DAILY #30 05/22/19 Unknown Rx carvediloL [Coreg] 12.5 mg PO BID #60 05/22/19 Unknown Rx lisinopriL [Zestril TAB] 20 mg PO QDAY #30 05/22/19 Unknown Rx Active Meds: Active Medications Acetaminophen (Acetaminophen 325 Mg Tab) 650 mg PO Q4H PRN PRN Reason: Pain MILD(1-3)/Fever >100.5/OLIVAS Albuterol (Albuterol 2.5 Mg/3 Ml Nebu) 2.5 mg IH Q4HRT PRN PRN Reason: Shortness Of Breath Amlodipine Besylate (Amlodipine 5 Mg Tab) 5 mg PO DAILY [facility]EN[facility] Apixaban (Apixaban 2.5 Mg Tab) 2.5 mg PO BID DOMENICA; Protocol Carvedilol (Carvedilol 12.5 Mg Tab) 12.5 mg PO BID [facility] Clopidogrel Bisulfate (Clopidogrel 75 Mg Tab) 75 mg PO QDAY [facility] Famotidine (Famotidine 20 Mg Tab) 20 mg PO BID [facility] Folic Acid (Folic Acid 1 Mg Tab) 1 mg PO DAILY [facility] Insulin Glargine (Insulin Glargine 100 Units/Ml) 4 units SUB-Q QHS [facility] Isosorbide Mononitrate (Isosorbide Mononitrate Er 30 Mg Tab) 30 mg PO DAILY [facility] Lisinopril (Lisinopril 20 Mg Tab) 20 mg PO QDAY [facility] Miscellaneous Medication (Atorvastatin) 40 mg PO DAILY [facility] Miscellaneous Medication (Hydralazine Hcl [Hydralazine Hcl]) 50 mg PO TID [facility] Miscellaneous Medication (Insulin Aspart (Nf)) 3 unit SQ TID [facility] Ondansetron HCl (Ondansetron 4 Mg/2 Ml Inj) 4 mg IV Q8H PRN PRN Reason: Nausea And Vomiting Sevelamer Carbonate (Sevelamer Carbonate 800 Mg Tab) 800 mg PO TIDWM [facility] Sodium Chloride (Sodium Chloride 0.9% 10 Ml Flush Syringe) 10 ml IV BID [facility] Sodium Chloride (Sodium Chloride 0.9% 10 Ml Flush Syringe) 10 ml IV PRN PRN PRN Reason: LINE FLUSH Review of Systems Constitutional: weakness Respiratory: shortness of breath Gastrointestinal: abdominal pain, nausea, vomiting, diarrhea Exam - Constitutional Vitals: Temp Pulse Resp BP Pulse Ox 97.8 F 69 14 152/61 100 06/21/20 15:37 06/21/20 20:10 06/21/20 20:10 06/21/20 20:10 06/21/20 20:10 General appearance: Present: mild distress - EENT Eyes: Present: PERRL ENT: hearing intact, clear oral mucosa - Neck Neck: Present: supple, normal ROM - Respiratory Respiratory effort: normal Respiratory: bilateral: rales - Cardiovascular Rhythm: irregularly irregular Heart Sounds: Present: S1 & S2. Absent: rub, click - Extremities Extremities: pulses symmetrical, No edema Peripheral Pulses: within normal limits - Abdominal General gastrointestinal: Present: soft, non-tender, non-distended, normal bowel sounds Male genitourinary: Present: normal - Integumentary Integumentary: Present: clear, warm, dry - Musculoskeletal Musculoskeletal: gait normal, strength equal bilaterally - Psychiatric Psychiatric: appropriate mood/affect, intact judgment & insight - Neurologic Neurologic: CNII-XII intact, moves all extremities Results - Labs CBC & Chem 7: 06/21/20 16:33 06/21/20 16:33 Labs: Laboratory Last Values WBC 5.3 K/mm3 (4.5-11.0) 06/21/20 16:33 RBC 3.94 M/mm3 (3.65-5.03) 06/21/20 16:33 Hgb 11.2 gm/dl (11.8-15.2) L 06/21/20 16:33 Hct 34.6 % (35.5-45.6) L 06/21/20 16:33 MCV 88 fl (84-94) 06/21/20 16:33 MCH 29 pg (28-32) 06/21/20 16:33 MCHC 33 % (32-34) 06/21/20 16:33 RDW 15.9 % (13.2-15.2) H 06/21/20 16:33 Plt Count 121 K/mm3 (140-440) L 06/21/20 16:33 Lymph % (Auto) 11.2 % (13.4-35.0) L 06/21/20 16:33 [place] % (Auto) 13.6 % (0.0-7.3) H 06/21/20 16:33 Eos % (Auto) 1.3 % (0.0-4.3) 06/21/20 16:33 Baso % (Auto) 1.0 % (0.0-1.8) 06/21/20 16:33 Lymph # (Auto) 0.6 K/mm3 (1.2-5.4) L 06/21/20 16:33 [place] # (Auto) 0.7 K/mm3 (0.0-0.8) 06/21/20 16:33 Eos # (Auto) 0.1 K/mm3 (0.0-0.4) 06/21/20 16:33 Baso # (Auto) 0.1 K/mm3 (0.0-0.1) 06/21/20 16:33 Seg Neutrophils % 72.9 % (40.0-70.0) H 06/21/20 16:33 Seg Neutrophils # 3.9 K/mm3 (1.8-7.7) 06/21/20 16:33 Sodium 141 mmol/L (137-145) 06/21/20 16:33 Potassium 4.1 mmol/L (3.6-5.0) 06/21/20 16:33 Chloride 101.0 mmol/L (98-107) 06/21/20 16:33 Carbon Dioxide 26 mmol/L (22-30) 06/21/20 16:33 Anion Gap 18 mmol/L 06/21/20 16:33 BUN 53 mg/dL (9-20) H 06/21/20 16:33 Creatinine 5.5 mg/dL (0.8-1.3) H 06/21/20 16:33 Estimated GFR 12 ml/min 06/21/20 16:33 BUN/Creatinine Ratio 10 % 06/21/20 16:33 Glucose 165 mg/dL (75-100) H 06/21/20 16:33 Calcium 8.8 mg/dL (8.4-10.2) 06/21/20 16:33 Total Bilirubin 0.30 mg/dL (0.1-1.2) 06/21/20 16:33 AST 16 units/L (5-40) 06/21/20 16:33 ALT 9 units/L (7-56) 06/21/20 16:33 Alkaline Phosphatase 105 units/L (35-129) 06/21/20 16:33 Total Protein 6.1 g/dL (6.3-8.2) L 06/21/20 16:33 Albumin 3.9 g/dL (3.9-5) 06/21/20 16:33 Albumin/Globulin Ratio 1.8 % 06/21/20 16:33 Lipase 31 units/L (13-60) 06/21/20 16:33 - Imaging and Cardiology Chest x-ray: report reviewed, image reviewed CT scan - abdomen: report reviewed Assessment and Plan VTE prophylaxis?: Chemical Plan of care discussed with patient/family: Yes - Patient Problems (1) Diarrhea Current Visit: Yes Status: Acute Plan to address problem: Admit the patient to the medical floor. Renal diet. Pepcid 20 mg p.o. twice daily. Zofran 4 mg IV every 6 hours as needed. We will hold IV fluid because of renal disease. Recheck CBC BMP in the morning. If needed reconsult GI in the morning. CT scan of the abdomen and pelvis shows no acute intra-abdominal pathology (2) Pulmonary edema Current Visit: Yes Status: Acute Plan to address problem: Patient missed hemodialysis today. We put the patient on oxygen 3 L/min. We will consult nephrology for hemodialysis in the morning. Recheck BMP in the morning (3) DVT prophylaxis Current Visit: Yes Status: Acute Plan to address problem: Patient is on apixaban 2.5 milligrams p.o. twice daily for DVT prophylaxis (4) ESRD on dialysis Current Visit: No Status: Acute Plan to address problem: Patient missed hemodialysis today. We put the patient on oxygen 3 L/min. We will consult nephrology for hemodialysis in the morning. Recheck BMP in the morning (5) Insulin dependent diabetes mellitus Current Visit: No Status: Acute Plan to address problem: Patient is on insulin sliding scale. We also put the patient on Lantus 4 units subcu nightly (6) CVA (cerebral vascular accident) Current Visit: Yes Status: Acute Plan to address problem: Patient is on Plavix 75 mg p.o. daily. Patient is also Eliquis 2.5 mg p.o. twice a day. We monitored the patient closely
[2020-06-21] MEDS ORDERED: INSULIN GLARGINE 100 UNITS/ML SUB-Q SCH (22:00)
[2020-06-21] MEDS: FAMOTIDINE 20 MG TAB PO SCH (23:01)
[2020-06-21] MEDS: APIXABAN 2.5 MG TAB PO SCH (23:01)
[2020-06-21] MEDS: INSULIN LISPRO 100 UNIT/ML SUB-Q SCH (23:18)
[2020-06-22 07:08] LABS: Basophils % (Auto) 0.7 % (0.0-1.8); Eosinophils # (Auto) 0.1 K/mm3 (0.0-0.4); Eosinophils % (Auto) 1.4 % (0.0-4.3); Hematocrit 32.9 % (35.5-45.6); Hemoglobin 10.7 gm/dl (11.8-15.2); Lymphocytes # (Auto) 0.6 K/mm3 (1.2-5.4); Lymphocytes % (Auto) 9.3 % (13.4-35.0); Mean Corpuscular HGB Conc 33 % (32-34); Mean Corpuscular Volume 88 fl (84-94); Monocytes # (Auto) 0.8 K/mm3 (0.0-0.8); Platelet Count 116 K/mm3 (140-440); Red Blood Count 3.75 M/mm3 (3.65-5.03); Red Cell Distribution Width 15.9 % (13.2-15.2)
[2020-06-22 07:14] LABS: Calcium 9.1 mg/dL (8.4-10.2)
[2020-06-22] MEDS ORDERED: NON-FORMULARY EACH (Insulin Aspart (Nf) 100 UNIT/ML Insuln.Pen) SQ SCH (08:00)
[2020-06-22] MEDS: INSULIN LISPRO 100 UNIT/ML SUB-Q SCH ×7 (08:00→22:10)
[2020-06-22] MEDS: carvediloL 12.5 MG TAB PO SCH ×2 (08:05→17:26)
[2020-06-22] MEDS ORDERED: SODIUM CHLORIDE 0.9% 100 ML IV PRN (08:07)
[2020-06-22] MEDS ORDERED: HEPARIN 10,000 UNITS/10 ML VIAL IV PRN (08:07)
[2020-06-22] MEDS ORDERED: DEXTROSE 50% IN WATER (25GM) 50 ML SYRINGE IV PRN (08:43)
[2020-06-22] MEDS: hydrALAZINE 25 MG TAB PO SCH ×3 (09:05→21:08)
[2020-06-22] MEDS: SEVELAMER CARBONATE 800 MG TAB PO SCH ×3 (09:05→17:25)
--- NOTE | 2020-06-22 09:46 | Consultation ---
History of Present Illness - Reason for Consult Consult date: 06/22/20 end stage renal disease - History of Present Illness The patient is a 79 YO male patient with history significant for Hypertension, DM type 2, Chronic A.fib (on Eliquis), Anemia and ESRD on hemodialysis (MWF) who presented to [facility] ED 06/21 with complaints of abdominal pain of several days duration. Patient is very poor historian. Based on the prior notes he complaint of mid and lower abdominal pain for the last several days and associated with diarrhea. Patient denies nausea, vomiting, fever, shortness of breath or previous abdominal surgeries. Patient missed dialysis yesterday secondary to his symptoms. CXR showed pulmonary edema. CT abdomen showed bilateral pleural effusion and small volume ascites. Nephrology was consulted for further evaluation and treatment of ESRD requiring hemodialysis. Past History Past Medical History: diabetes, heart failure, renal failure, stroke, other (See HPI.) Medications and Allergies Allergies Allergy/AdvReac Type Severity Reaction Status Date / Time No Known Allergies Allergy Unverified 06/19/18 18:01 Home Medications Medication Instructions Recorded Confirmed Last Taken Type Cholecalciferol Vit D3 [Vitamin D3 1,000 unit PO QDAY 05/19/19 05/19/19 Unknown History 1,000 UNIT TAB] Insulin Aspart (Nf) [NovoLOG 3 unit SQ TID 05/19/19 05/19/19 Unknown History Flexpen] Insulin Glargine,Hum.rec.anlog 4 unit SQ HS 05/19/19 05/19/19 Unknown History [Basaglar Kwikpen U-100] Sevelamer Carbonate [Renvela] 800 mg PO TIDWM 05/19/19 05/19/19 Unknown History Apixaban [Eliquis] 2.5 mg PO BID tablet 05/22/19 Unknown Rx AtorvaSTATin 40 mg PO DAILY #30 05/22/19 Unknown Rx AtorvaSTATin [Lipitor] 40 mg PO QHS tablet 05/22/19 Unknown Rx Clopidogrel [Plavix] 75 mg PO QDAY #30 05/22/19 Unknown Rx Folic Acid 1 mg PO DAILY #30 05/22/19 Unknown Rx Hydralazine HCl 50 mg PO TID #90 05/22/19 Unknown Rx ISOSORBIDE MONOnitrate [Imdur ER] 30 mg PO DAILY #30 05/22/19 Unknown Rx carvediloL [Coreg] 12.5 mg PO BID #60 05/22/19 Unknown Rx lisinopriL [Zestril TAB] 20 mg PO QDAY #30 05/22/19 Unknown Rx Active Meds: Active Medications Acetaminophen (Acetaminophen 325 Mg Tab) 650 mg PO Q4H PRN PRN Reason: Pain MILD(1-3)/Fever >100.5/OLIVAS Albuterol (Albuterol 2.5 Mg/3 Ml Nebu) 2.5 mg IH Q4HRT PRN PRN Reason: Shortness Of Breath Amlodipine Besylate (Amlodipine 5 Mg Tab) 5 mg PO DAILY [facility] Apixaban (Apixaban 2.5 Mg Tab) 2.5 mg PO BID [facility]; Protocol Last Admin: 06/21/20 23:01 Dose: 2.5 mg Documented by: Atorvastatin Calcium (Atorvastatin 40 Mg Tab) 40 mg PO DAILY [facility] Carvedilol (Carvedilol 12.5 Mg Tab) 12.5 mg PO BID@0800,1700 [facility] Last Admin: 06/22/20 08:05 Dose: 12.5 mg Documented by: Clopidogrel Bisulfate (Clopidogrel 75 Mg Tab) 75 mg PO QDAY [facility] Dextrose (Dextrose 50% In Water (25gm) 50 Ml Syringe) 50 ml IV Q30MIN PRN; Protocol PRN Reason: Hypoglycemia Last Admin: 06/22/20 09:01 Dose: 50 ml Documented by: Famotidine (Famotidine 20 Mg Tab) 20 mg PO QAM [facility] Last Admin: 06/21/20 23:01 Dose: 20 mg Documented by: Folic Acid (Folic Acid 1 Mg Tab) 1 mg PO DAILY [facility] Heparin Sodium (Porcine) (Heparin 10,000 Units/10 Ml Vial) 2,000 unit IV NANI P RN PRN Reason: hemodialysis Hydralazine HCl (Hydralazine 25 Mg Tab) 50 mg PO TID [facility] Last Admin: 06/22/20 09:05 Dose: 50 mg Documented by: Sodium Chloride (Nacl 0.9%) 100 mls @ 999 mls/hr IV NANI PRN PRN Reason: Hypotension Insulin Glargine (Insulin Glargine 100 Units/Ml) 4 units SUB-Q QHS [facility] Last Admin: 06/21/20 23:17 Dose: 4 units Documented by: Insulin Human Lispro (Insulin Lispro 100 Unit/Ml) 3 unit SUB-Q TIDAC [facility] Last Admin: 06/22/20 08:00 Dose: Not Given Documented by: Insulin Human Lispro (Insulin Lispro 100 Unit/Ml) 0 unit SUB-Q ACHS [facility]; Protocol Last Admin: 06/22/20 08:41 Dose: Not Given Documented by: Isosorbide Mononitrate (Isosorbide Mononitrate Er 30 Mg Tab) 30 mg PO DAILY [facility] Lisinopril (Lisinopril 20 Mg Tab) 20 mg PO QDAY [facility] Ondansetron HCl (Ondansetron 4 Mg/2 Ml Inj) 4 mg IV Q8H PRN PRN Reason: Nausea And Vomiting Pneumococcal Polyvalent Vaccine (Pneumococcal 23 Valent 0.5 Ml Vial) 0.5 ml IM .ONCE ONE Stop: 06/23/20 12:01 Sevelamer Carbonate (Sevelamer Carbonate 800 Mg Tab) 800 mg PO TIDWM [facility] Last Admin: 06/22/20 09:05 Dose: 800 mg Documented by: Sodium Chloride (Sodium Chloride 0.9% 10 Ml Flush Syringe) 10 ml IV BID [facility] Last Admin: 06/21/20 23:01 Dose: 10 ml Documented by: Sodium Chloride (Sodium Chloride 0.9% 10 Ml Flush Syringe) 10 ml IV PRN PRN PRN Reason: LINE FLUSH Review of Systems ROS unobtainable: due to mental status Exam - Vital Signs Vital signs: Vital Signs Temp Pulse Resp BP Pulse Ox 97.8 F 75 22 135/61 96 06/21/20 15:37 06/21/20 15:37 06/21/20 15:37 06/21/20 15:37 06/21/20 15:37 Results - Lab Results 06/22/20 04:00 06/22/20 09:30 Most recent lab results Calcium 9.1 mg/dL (8.4-10.2) 06/22/20 04:00 Assessment and Plan 1. End stage renal disease: Patient is on maintenance hemodialysis three times a week, MWF schedule. Last outpatient HD 06/16. Meds dosage based on GFR. Has L upper arm AVF. Hemodialysis: 06/22. 2. FEN: Volume overload, UF with HD, monitor. Monitor lytes and volume status. 3. Abdominal pain: CT abdomen negative for any acute process. Monitor. 4. Hypertension: Monitor BP. 5. Chronic Afib: On Eliquis. 6. Diabetes mellitus: On Lantus and SSI. Monitor. 7. Anemia: Epogen as needed. Subjective: Patient was seen and examined at the bedside. Examination: General appearance: well-developed, malnourished, appears stated age, no distress HEENT: ATNC, MIKKI, mucous membranes moist Neck: supple Respiratory: Clear to Ascultation, decreased Breath Sounds (bibasilar) Heart: S1S2 heard, no murmur Gastrointestinal: soft, normoactive bowel sounds, NT Integumentary: no rash, warm and dry Neurologic: no focal deficit, confusion noted, generalized weakness Musculo-skeletal: extensive muscle wasting Hemodialysis access: L UA AVF
[2020-06-22 11:56] LABS: Hepatitis B Surface Antigen Non-Reactive (Negative); Hepatitis C Virus Antibody Non-Reactive (NonReactive)
--- NOTE | 2020-06-22 11:58 | Progress Note ---
Assessment and Plan --Acute diarrhea cont Renal diet for now as tolerated. Pepcid 20 mg p.o. twice daily. Zofran 4 mg IV every 6 hours as needed. We will hold IV fluid because of renal disease. CT scan of the abdomen and pelvis shows no acute intra-abdominal pathology Will order stool for white count, will monitor clinically Does not appear that patient has C. difficile colitis --Acute hypoxic respiratory failure due to pulmonary edema from volume overload Patient missed hemodialysis yesterday. We put the patient on oxygen 3 L/min. We will consult nephrology for hemodialysis in the morning. Recheck BMP in the morning --ESRD on dialysis consulted nephrology for hemodialysis. Recheck BMP in the morning -- Insulin dependent diabetes mellitus Patient is on insulin sliding scale. We also put the patient on Lantus 4 units subcu nightly -- CVA (cerebral vascular accident) Patient is on Plavix 75 mg p.o. daily. Patient is also Eliquis 2.5 mg p.o. twice a day. We monitored the patient closely --Physical debility, chronic Patient is wheelchair-bound --Severe protein calorie malnutrition, nutrition consult Continue supplements for now -- DVT prophylaxis Patient is on apixaban 2.5 milligrams p.o. twice daily for DVT prophylaxis Daily clinical course: 06/22: Order stool for white count and stool study if continue to have loose stool/diarrhea. Continue renal diet, hemodialysis per nephrology. Monitor c linically if diarrhea resolves and patient is able to tolerate diet possible discharge tomorrow morning Subjective Date of service: 06/22/20 Interval history: Patient seen and examined. Medical records and medication list reviewed. No acute event overnight noted by the RN. Patient denies any chest pain or difficulty breathing. Patient seen during hemodialysis, denies any abdominal pain No further loose bowel movement since admission Discussed plan of care at bedside with patient. Objective - Exam Narrative Exam: GENERAL: well-developed elderly -[place] male lying on bed appeared to be in no discomfort. HEENT: Normocephalic. Atraumatic. No conjunctival congestion or icterus. Patient has moist mucous membranes. NECK: Supple. Trachea midline. CHEST/LUNGS: Clear to auscultated bilaterally, breathing nonlabored. No wheezes crackles or rhonchi. HEART/CARDIOVASCULAR: Regular in rate and rhythm. S1 and S2 positive. ABDOMEN: Abdomen is soft, nontender. Patient has normal bowel sounds. SKIN: There is no rash. Warm and dry. NEURO: Left-sided weakness. Follows command. MUSCULOSKELETAL: No joint effusion or tenderness. Significant sign of muscle wasting on upper and lower extremities EXTRIMITY: No edema, no cyanosis or clubbing. PSYCH: Cooperative. AAOx3 - Constitutional Vitals: Vital Signs - 12hr 06/22/20 06/22/20 06/22/20 00:24 08:05 09:05 Temperature 98.9 F Pulse Rate 70 100 H 100 H Respiratory 16 Rate Blood Pressure 123/67 153/74 153/74 O2 Sat by Pulse 97 Oximetry - Labs CBC & Chem 7: 06/22/20 04:00 06/22/20 09:30 Labs: Abnormal lab results 06/21/20 06/21/20 06/21/20 Range/Units 16:33 16:33 23:16 Hgb 11.2 L (11.8-15.2) gm/dl Hct 34.6 L (35.5-45.6) % RDW 15.9 H (13.2-15.2) % Plt Count 121 L (140-440) K/mm3 Lymph % (Auto) 11.2 L (13.4-35.0) % Cole % (Auto) 13.6 H (0.0-7.3) % Lymph # (Auto) 0.6 L (1.2-5.4) K/mm3 Seg Neutrophils % 72.9 H (40.0-70.0) % Carbon Dioxide (22-30) mmol/L BUN 53 H (9-20) mg/dL Creatinine 5.5 H (0.8-1.3) mg/dL Glucose 165 H (75-100) mg/dL POC Glucose 136 H (70-105) mg/dL Total Protein 6.1 L (6.3-8.2) g/dL 06/22/20 06/22/20 06/22/20 Range/Units 04:00 04:00 08:40 Hgb 10.7 L (11.8-15.2) gm/dl Hct 32.9 L (35.5-45.6) % RDW 15.9 H (13.2-15.2) % Plt Count 116 L (140-440) K/mm3 Lymph % (Auto) 9.3 L (13.4-35.0) % Cole % (Auto) 11.0 H (0.0-7.3) % Lymph # (Auto) 0.6 L (1.2-5.4) K/mm3 Seg Neutrophils % 77.6 H (40.0-70.0) % Carbon Dioxide 32 H (22-30) mmol/L BUN 58 H (9-20) mg/dL Creatinine 6.1 H (0.8-1.3) mg/dL Glucose (75-100) mg/dL POC Glucose 34 L (70-105) mg/dL Total Protein (6.3-8.2) g/dL
[2020-06-22] MEDS: APIXABAN 2.5 MG TAB PO SCH ×2 (17:24→21:08)
[2020-06-22] MEDS: CLOPIDOGREL 75 MG TAB PO SCH (17:24)
[2020-06-22] MEDS: amLODIPine 5 MG TAB PO SCH (17:25)
[2020-06-22] MEDS: FAMOTIDINE 20 MG TAB PO SCH (17:25)
[2020-06-22] MEDS: FOLIC ACID 1 MG TAB PO SCH (17:26)
[2020-06-22] MEDS: LISINOPRIL 20 MG TAB PO SCH (17:26)
[2020-06-22] MEDS ORDERED: INSULIN GLARGINE 100 UNITS/ML SUB-Q SCH (22:00)
[2020-06-22] MEDS ORDERED: NON-FORMULARY EACH (Insulin Glargine,Hum.Rec.Anlog [Basaglar Kwikpen U-100] 100 UNIT/ML In SQ SCH (22:00)
[2020-06-23] MEDS: INSULIN LISPRO 100 UNIT/ML SUB-Q SCH ×4 (07:35→13:28)
[2020-06-23] MEDS ORDERED: CHOLECALCIFEROL (VIT D3) 1000 UNIT (25 mcg) TAB PO SCH (10:00)
[2020-06-23] MEDS: SEVELAMER CARBONATE 800 MG TAB PO SCH ×2 (10:18→13:29)
[2020-06-23] MEDS: hydrALAZINE 25 MG TAB PO SCH ×2 (10:24→16:43)
[2020-06-23] MEDS: APIXABAN 2.5 MG TAB PO SCH (10:25)
[2020-06-23] MEDS: amLODIPine 5 MG TAB PO SCH (10:25)
[2020-06-23] MEDS: carvediloL 12.5 MG TAB PO SCH (10:25)
[2020-06-23] MEDS: FOLIC ACID 1 MG TAB PO SCH (10:25)
[2020-06-23] MEDS: FAMOTIDINE 20 MG TAB PO SCH (10:26)
[2020-06-23] MEDS: CLOPIDOGREL 75 MG TAB PO SCH (10:26)
[2020-06-23] MEDS: LISINOPRIL 20 MG TAB PO SCH (10:27)
--- NOTE | 2020-06-23 11:11 | Discharge Summary ---
Providers - Providers Date of Admission: 06/22/20 10:28 Date of discharge: 06/23/20 Attending physician: DAMIR ACOSTA 06/21/20 19:41 Consult to Physician [CONS] Urgent Comment: Dr. Valera spoke with Dr. Araujo @ 1939 Consulting Provider: ROBBI ARAUJO Physician Instructions: Reason For Exam: esrd, pulm edema 06/23/20 11:05 Consult to Dietitian/Nutrition [CONS] Stat Reason For Exam: Physician Instructions: Reason for Consult: Malnutrition Primary care physician: [facility] Hospitalization Condition: Stable Pertinent studies: CT abdomen pelvis, chest x-ray Hospital course: The patient is a 79 YO male patient with history significant for Hypertension, DM type 2, Chronic A.fib (on Eliquis), CVA, Anemia of CD and ESRD on hemodialysis (MWF), wheelchair-bound who presented to [facility] ED 06/21 with complaints of abdominal pain and diarrhea for several days. His dialysis schedule is M/W/F at [facility] and he is typically compliant with treatment schedule. His last outpatient HD was 05/17. Patient states that he could not go to the dialysis yesterday because of the abd ominal pain. CT abdomen pelvis was obtained in the ER which did not show any acute inflammatory/infectious cause and moderate amount of stool in the colon without any obstruction. Nephrology was consulted for hemodialysis. Patient did not have any diarrhea following admission and was able to tolerate diet. Patient was recommended regular stool softener, high-fiber diet for constipation and nutritional supplement for malnutrition. Patient was then discharged home in stable condition with outpatient follow-up. Disposition: DC/- HOME UNDER HOME [facility] Final Discharge Diagnosis (Prints w/discharge instructions): Acute diarrhea, resolved. Acute hypoxic respiratory failure due to volume overload, resolved. End-stage renal disease on hemodialysis. Insulin-dependent diabetes mellitus type 2. History of CVA with left-sided weakness. Physical debility, chronic. Severe protein calorie malnutrition. Anemia of chronic disease, h/h was stable Time spent for discharge: 34 minutes Core Measure Documentation - Palliative Care Palliative Care/ Comfort Measures: Not Applicable - Core Measures Any of the following diagnoses?: history only Exam - Physical Exam Narrative exam: GENERAL: well-developed elderly -Burmese male lying on bed appeared to be in no discomfort. HEENT: Normocephalic. Atraumatic. No conjunctival congestion or icterus. Patient has moist mucous membranes. NECK: Supple. Trachea midline. CHEST/LUNGS: Clear to auscultated bilaterally, breathing nonlabored. No wheezes crackles or rhonchi. HEART/CARDIOVASCULAR: Regular in rate and rhythm. S1 and S2 positive. ABDOMEN: Abdomen is soft, nontender. Patient has normal bowel sounds. SKIN: There is no rash. Warm and dry. NEURO: Left-sided weakness. Follows command. MUSCULOSKELETAL: No joint effusion or tenderness. Significant sign of muscle wasting on upper and lower extremities EXTRIMITY: No edema, no cyanosis or clubbing. PSYCH: Cooperative. AAOx3 - Constitutional Vitals: Temp Pulse Resp BP Pulse Ox 97.0 F L 76 18 136/61 96 06/23/20 05:51 06/23/20 10:24 06/23/20 05:51 06/23/20 10:24 06/23/20 05:51 Plan Activity: up only with assistance, fall precautions Weight Bearing Status: Non-Weight Bearing Diet: diabetic, renal, other (Nutrition supplements and fiber rich diet) Special Instructions: restrict fluid intake to (1.2L per day) Additional Instructions: Use regular stool softener and high-fiber diet Follow up with: PRIMARY CARE, [Primary Care Provider] - 7 Days
[2020-06-23] MEDS ORDERED: PNEUMOCOCCAL 23 Valent 0.5 ML VIAL IM ONE (12:00)
--- NOTE | 2020-06-23 13:20 | Progress Note ---
Assessment and Plan 1. End stage renal disease: Patient is on maintenance hemodialysis three times a week, MWF schedule. Last outpatient HD 06/16. Meds dosage based on GFR. Has L upper arm AVF. Hemodialysis: 06/22, 06/23. 2. FEN: Volume overload, UF with HD, monitor. Monitor lytes and volume status. 3. Abdominal pain & diarrhea: CT abdomen negative for any acute process. Monitor. 4. Acute hypoxic respiratory failure: 2/2 pulmonary edema from volume overload. Patient missed 2 sessions of hemodialysis. 5. Hypertension: Monitor BP. 6. Chronic Afib: On Eliquis. 7. Diabetes mellitus: On Lantus and SSI. Monitor. 8. Anemia: Epogen as needed. 9. Chronic debility. Subjective: Patient was seen and examined at the bedside. Examination: General appearance: well-developed, malnourished, appears stated age, no distress HEENT: ATNC, MIKKI, mucous membranes moist Neck: supple Respiratory: Clear to Ascultation, decreased Breath Sounds (bibasilar) Heart: S1S2 heard, no murmur Gastrointestinal: soft, normoactive bowel sounds, NT Integumentary: no rash, warm and dry Neurologic: no focal deficit, confusion noted, generalized weakness Musculo-skeletal: extensive muscle wasting Hemodialysis access: L UA AVF Subjective Date of service: 06/23/20 Objective - Vital Signs Vital signs: Vital Signs - 12hr 06/23/20 06/23/20 06/23/20 05:51 10:00 10:24 Temperature 97.0 F L Pulse Rate 76 76 Respiratory 18 Rate Blood Pressure 136/61 136/61 O2 Sat by Pulse 96 98 Oximetry - Lab 06/22/20 04:00 06/22/20 09:30 Most recent lab results Calcium 9.1 mg/dL (8.4-10.2) 06/22/20 04:00 Medications & Allergies - Medications Allergies/Adverse Reactions: Allergies No Known Allergies Allergy (Unverified 06/19/18 18:01) Home Medications: Home Medications Medication Instructions Recorded Confirmed Last Taken Type Cholecalciferol Vit D3 [Vitamin D3 1,000 unit PO QDAY 05/19/19 05/19/19 Unknown History 1,000 UNIT TAB] Insulin Aspart (Nf) [NovoLOG 3 unit SQ TID 05/19/19 05/19/19 Unknown History Flexpen] Insulin Glargine,Hum.rec.anlog 4 unit SQ HS 05/19/19 05/19/19 Unknown History [Basagldoreen Ariaspen U-100] Sevelamer Carbonate [Renvela] 800 mg PO TIDWM 05/19/19 05/19/19 Unknown History Apixaban [Eliquis] 2.5 mg PO BID tablet 05/22/19 Unknown Rx AtorvaSTATin 40 mg PO DAILY #30 05/22/19 Unknown Rx AtorvaSTATin [Lipitor] 40 mg PO QHS tablet 05/22/19 Unknown Rx Clopidogrel [Plavix] 75 mg PO QDAY #30 05/22/19 Unknown Rx Folic Acid 1 mg PO DAILY #30 05/22/19 Unknown Rx Hydralazine HCl 50 mg PO TID #90 05/22/19 Unknown Rx ISOSORBIDE MONOnitrate [Imdur ER] 30 mg PO DAILY #30 05/22/19 Unknown Rx carvediloL [Coreg] 12.5 mg PO BID #60 05/22/19 Unknown Rx lisinopriL [Zestril TAB] 20 mg PO QDAY #30 05/22/19 Unknown Rx Active Medications: Generic Name Dose Route Start Last Admin Trade Name Freq PRN Reason Stop Dose Admin Acetaminophen 650 mg 06/21/20 21:33 Acetaminophen 325 Mg Tab PO Q4H PRN Pain MILD(1-3)/Fever >100.5/OLIVAS Albuterol 2.5 mg 06/21/20 21:33 Albuterol 2.5 Mg/3 Ml Nebu IH Q4HRT PRN Shortness Of Breath Amlodipine Besylate 5 mg 06/22/20 10:00 06/23/20 10:25 Amlodipine 5 Mg Tab PO Not Given DAILY [facility] Apixaban 2.5 mg 06/21/20 22:00 06/23/20 10:25 Apixaban 2.5 Mg Tab PO Not Given BID [facility] Protocol Atorvastatin Calcium 40 mg 06/22/20 10:00 06/23/20 10:26 Atorvastatin 40 Mg Tab PO Not Given DAILY [facility] Carvedilol 12.5 mg 06/22/20 08:00 06/23/20 10:25 Carvedilol 12.5 Mg Tab PO Not Given BID@0800,1700 [facility] Cholecalciferol 1,000 unit 06/23/20 10:00 06/23/20 10:27 Cholecalciferol (Vit D3) 1000 Unit (25 Mcg) Tab PO Not Given QDAY [facility] Clopidogrel Bisulfate 75 mg 06/22/20 10:00 06/23/20 10:26 Clopidogrel 75 Mg Tab PO Not Given QDAY [facility] Dextrose 50 ml 06/22/20 08:43 06/22/20 09:01 Dextrose 50% In Water (25gm) 50 Ml Syringe IV 50 ml Q30MIN PRN Administration Hypoglycemia Protocol Famotidine 20 mg 06/21/20 22:00 06/23/20 10:26 Famotidine 20 Mg Tab PO Not Given QAM [facility] Folic Acid 1 mg 06/22/20 10:00 06/23/20 10:25 Folic Acid 1 Mg Tab PO Not Given DAILY [facility] Heparin Sodium (Porcine) 2,000 unit 06/22/20 08:07 Heparin 10,000 Units/10 Ml Vial IV NANI PRN hemodialysis Hydralazine HCl 50 mg 06/22/20 08:00 06/23/20 10:24 Hydralazine 25 Mg Tab PO Not Given TID [facility] Sodium Chloride 100 mls @ 999 mls/hr 06/22/20 08:07 Nacl 0.9% IV NANI PRN Hypotension Insulin Glargine 4 units 06/22/20 22:00 06/22/20 21:09 Insulin Glargine 100 Units/Ml SUB-Q 4 units QHS [facility] Administration Insulin Human Lispro 3 unit 06/22/20 07:30 06/23/20 07:35 Insulin Lispro 100 Unit/Ml SUB-Q Not Given TIDAC [facility] Insulin Human Lispro 0 unit 06/21/20 22:50 06/23/20 10:11 Insulin Lispro 100 Unit/Ml SUB-Q Not Given ACHS [facility] Protocol Isosorbide Mononitrate 30 mg 06/22/20 10:00 06/23/20 10:26 Isosorbide Mononitrate Er 30 Mg Tab PO Not Given DAILY [facility] Lisinopril 20 mg 06/22/20 10:00 06/23/20 10:27 Lisinopril 20 Mg Tab PO Not Given QDAY [facility] Ondansetron HCl 4 mg 06/21/20 21:33 Ondansetron 4 Mg/2 Ml Inj IV Q8H PRN Nausea And Vomiting Sevelamer Carbonate 800 mg 06/22/20 08:00 06/23/20 10:18 Sevelamer Carbonate 800 Mg Tab PO 800 mg TIDWM DOMENICA Administration Sodium Chloride 10 ml 06/21/20 22:00 06/22/20 21:09 Sodium Chloride 0.9% 10 Ml Flush Syringe IV 10 ml BID DOMENICA Administration Sodium Chloride 10 ml 06/21/20 21:33 Sodium Chloride 0.9% 10 Ml Flush Syringe IV PRN PRN LINE FLUSH
[2020-06-23 16:37] VITALS: BP 131/63
== END 2020-06-23 18:36 | disposition home health service (06) | DRG 640 ==
LOC: ED 15:22 → 3A 19:45 → OBSVTOIN 06-22 10:28
PROVIDERS: ADMIT Hospitalist; ATTEND Internal Medicine
PROC: 5A1D70Z Performance of Urinary Filtration, Intermittent, Less than 6 Hours Per Day (ICD-10-PCS; principal; 2020-06-22)
PROC: 5A1D70Z Performance of Urinary Filtration, Intermittent, Less than 6 Hours Per Day (ICD-10-PCS; 2020-06-23)
DX: E87.70 Fluid overload, unspecified (principal); J96.01 Acute respiratory failure with hypoxia; N18.6 End stage renal disease; E43 Unspecified severe protein-calorie malnutrition; I48.20 Chronic atrial fibrillation, unspecified; I13.0 Hypertensive heart and chronic kidney disease with heart failure and stage 1 through stage 4 chronic kidney disease, or unspecified chronic kidney disease; E11.22 Type 2 diabetes mellitus with diabetic chronic kidney disease; I50.9 Heart failure, unspecified; F03.90 Unspecified dementia, unspecified severity, without behavioral disturbance, psychotic disturbance, mood disturbance, and anxiety; D63.8 Anemia in other chronic diseases classified elsewhere; Z99.2 Dependence on renal dialysis; Z86.73 Personal history of transient ischemic attack (TIA), and cerebral infarction without residual deficits; Z79.01 Long term (current) use of anticoagulants; Z79.4 Long term (current) use of insulin
CPT/HCPCS: 36415; 71045; 74176; 80048; 80053; 80074; 82947; 82962; 83690; 85025; 87116; 90732; 96372; 96374; 96375; G0378; A9270-GY; J1815; J2270; J2405

== ENCOUNTER 2020-07-10 02:35 | Emergency (ER) | payer MEDICARE, OTHER ==
--- NOTE | 2020-07-10 03:12 | Emergency Department Report ---
ED General Adult HPI - General Chief complaint: Fall Stated complaint: RECTAL BLEED Time Seen by Provider: 07/10/20 02:51 Source: patient, EMS Mode of arrival: Stretcher Limitations: Physical Limitation - History of Present Illness Initial comments: 79-year-old male, history of dementia, ESRD, diabetes, CVA, A. fib on Eliquis, presents to ED from correction for evaluation of fall and rectal bleeding. Patient states he was in his wheelchair. States he was reaching up above to put something in his closet when he slid out of his wheelchair, falling down onto his buttocks, hitting the foot rest of the wheelchair. Patient was noted to have some blood in his underwear so he was sent to the ED. Patient reports his sacral area feels a little sore. Patient denies hitting his head. -: This morning Location: buttocks Radiation: non-radiation Quality: other (Soreness) Consistency: intermittent Improves with: immobilization Worsens with: movement Associated Symptoms: denies: headaches Treatments Prior to Arrival: none - Related Data Home Medications Medication Instructions Recorded Confirmed Last Taken Cholecalciferol Vit D3 [Vitamin D3 1,000 unit PO QDAY 05/19/19 05/19/19 Unknown 1,000 UNIT TAB] Insulin Aspart (Nf) [NovoLOG 3 unit SQ TID 05/19/19 05/19/19 Unknown Flexpen] Insulin Glargine,Hum.rec.anlog 4 unit SQ HS 05/19/19 05/19/19 Unknown [Basaglar Kwikpen U-100] Sevelamer Carbonate [Renvela] 800 mg PO TIDWM 05/19/19 05/19/19 Unknown Previous Rx's Medication Instructions Recorded Last Taken Type Apixaban [Eliquis] 2.5 mg PO BID tablet 05/22/19 Unknown Rx AtorvaSTATin 40 mg PO DAILY #05/22/19 Unknown Rx AtorvaSTATin [Lipitor] 40 mg PO QHS tablet 05/22/19 Unknown Rx Clopidogrel [Plavix] 75 mg PO QDAY #05/22/19 Unknown Rx Folic Acid 1 mg PO DAILY #05/22/19 Unknown Rx Hydralazine HCl 50 mg PO TID #90 05/22/19 Unknown Rx ISOSORBIDE MONOnitrate [Imdur ER] 30 mg PO DAILY #30 05/22/19 Unknown Rx carvediloL [Coreg] 12.5 mg PO BID #60 05/22/19 Unknown Rx lisinopriL [Zestril TAB] 20 mg PO QDAY #30 05/22/19 Unknown Rx Allergies Allergy/AdvReac Type Severity Reaction Status Date / Time No Known Allergies Allergy Unverified 06/19/18 18:01 ED Review of Systems ROS: Stated complaint: RECTAL BLEED Other details as noted in HPI Comment: All other systems reviewed and negative Musculoskeletal: back pain Neurological: denies: headache ED Past Medical Hx - Past Medical History Previous Medical History?: Yes Hx Hypertension: Yes Hx CVA: Yes (x3) Hx Congestive Heart Failure: No Hx Diabetes: Yes Hx Renal Disease: Yes (HD MWF) Hx Tuberculosis: No Hx HIV: No Additional medical history: afib on Coumadin - Surgical History Past Surgical History?: Yes Additional Surgical History: Hemodialysis shunt Left upper arm - Social History Smoking Status: Unknown if ever smoked - Medications Home Medications: Home Medications Medication Instructions Recorded Confirmed Last Taken Type Cholecalciferol Vit D3 [Vitamin D3 1,000 unit PO QDAY 05/19/19 05/19/19 Unknown History 1,000 UNIT TAB] Insulin Aspart (Nf) [NovoLOG 3 unit SQ TID 05/19/19 05/19/19 Unknown History Flexpen] Insulin Glargine,Hum.rec.anlog 4 unit SQ HS 05/19/19 05/19/19 Unknown History [Basaglar Kwikpen U-100] Sevelamer Carbonate [Renvela] 800 mg PO TIDWM 05/19/19 05/19/19 Unknown History Apixaban [Eliquis] 2.5 mg PO BID tablet 05/22/19 Unknown Rx AtorvaSTATin 40 mg PO DAILY #30 05/22/19 Unknown Rx AtorvaSTATin [Lipitor] 40 mg PO QHS tablet 05/22/19 Unknown Rx Clopidogrel [Plavix] 75 mg PO QDAY #30 05/22/19 Unknown Rx Folic Acid 1 mg PO DAILY #30 05/22/19 Unknown Rx Hydralazine HCl 50 mg PO TID #90 05/22/19 Unknown Rx ISOSORBIDE MONOnitrate [Imdur ER] 30 mg PO DAILY #30 05/22/19 Unknown Rx carvediloL [Coreg] 12.5 mg PO BID #60 05/22/19 Unknown Rx lisinopriL [Zestril TAB] 20 mg PO QDAY #30 05/22/19 Unknown Rx ED Physical Exam - General Limitations: Physical Limitation General appearance: alert, in no apparent distress - Head Head exam: Present: atraumatic, normocephalic - ENT ENT exam: Present: mucous membranes moist - Neck Neck exam: Present: normal inspection. Absent: tenderness - Respiratory Respiratory exam: Present: normal lung sounds bilaterally. Absent: respiratory distress - Cardiovascular Cardiovascular Exam: Present: regular rate, normal rhythm - GI/Abdominal GI/Abdominal exam: Present: soft. Absent: distended, tenderness - Rectal Rectal exam: Present: other (Brown stool) - Extremities Exam Extremities exam: Present: normal inspection - Back Exam Back exam: Present: other (Skin tear noted a few inches above the anus area with some blood present but no active bleeding) - Neurological Exam Neurological exam: Present: alert, oriented X3 - Psychiatric Psychiatric exam: Present: normal affect, normal mood - Skin Skin exam: Present: warm, dry, other (Skin tear present in sacral area) ED Course Vital Signs 07/10/20 07/10/20 02:53 04:00 Temperature 97.7 F Pulse Rate 70 68 Respiratory 17 14 Rate Blood Pressure 147/65 Blood Pressure 147/66 [Right] O2 Sat by Pulse 100 99 Oximetry ED Medical Decision Making - Lab Data Result diagrams: 07/10/20 04:07 07/10/20 04:07 - Radiology Data Radiology results: report reviewed, image reviewed - Medical Decision Making 79-year-old male sent to ED for rectal bleeding. Patient however reports that he fell out of his wheelchair onto the foot rest of the wheelchair hitting his lower back during the fall. Patient has evidence of abrasion/skin tear above the anus. He does have some blood in his underwear which could appear to be rectal bleeding. However, patient has light brown stool on rectal exam. The blood is coming from the skin tear. Hemoglobin is normal. Vital signs are stable. X-ray of the lumbosacral spine is negative for any acute fractures. CT head is negative for any intra-cranial injury or bleed. Chemistry shows normal potassium. Patient will be discharged back to his nursing facility at this time. Critical care attestation.: If time is entered above; I have spent that time in minutes in the direct care of this critically ill patient, excluding procedure time. ED Disposition Clinical Impression: Fall, Contusion of lower back, Abrasion of lower back Disposition: DC-01 TO HOME OR SELFCARE Is pt being admited?: No Condition: Stable Referrals: PRIMARY CARE, [Primary Care Provider] - 3-5 Days Time of Disposition: 04:57
--- NOTE | 2020-07-10 03:35 | XRay Report ---
LUMBAR SPINE AP AND LATERAL VIEWS INDICATION: Low back pain after fall. COMPARISON: CT abdomen/pelvis 06/21/2020. FINDINGS: No acute, displaced fracture is seen. There is advanced spondylosis. There is no SI joint diastases. There is osteopenia within the pelvis.. IMPRESSION: 1. No acute findings. Signer Name: Teja Cortez MD Signed: 07/10/2020 3:31 AM Workstation Name: [id number]
--- NOTE | 2020-07-10 03:53 | Cat Scan Report ---
CT HEAD WITHOUT CONTRAST INDICATION: Head injury, fall. TECHNIQUE: All CT scans at this location are performed using CT dose reduction for ALARA by means of automated e xposure control. COMPARISON: None available. FINDINGS: HEMORRHAGE: None. EXTRA-AXIAL SPACES: Normal in size and morphology for the patient's age. VENTRICULAR SYSTEM: Normal in size and morphology for the patient's age. BRAIN PARENCHYMA: No acute findings. Extensive microangiopathic changes and diffuse atrophy are again noted. Right thalamic lacunar infarct is again noted. MIDLINE SHIFT OR HERNIATION: None. ORBITS: Normal as visualized. SOFT TISSUES OF HEAD: Normal. CALVARIUM: Normal. VISUALIZED PARANASAL SINUSES: Clear. ADDITIONAL FINDINGS: None. IMPRESSION: 1. No acute intracranial abnormality. Signer Name: Teja Cortez MD Signed: 07/10/2020 3:49 AM Workstation Name: [id number]
[2020-07-10 04:33] LABS: Basophils % (Auto) 1.6 % (0.0-1.8); Eosinophils # (Auto) 0.2 K/mm3 (0.0-0.4); Eosinophils % (Auto) 6.3 % (0.0-4.3); Hematocrit 37.4 % (35.5-45.6); Hemoglobin 11.9 gm/dl (11.8-15.2); Lymphocytes # (Auto) 0.5 K/mm3 (1.2-5.4); Lymphocytes % (Auto) 18.4 % (13.4-35.0); Mean Corpuscular HGB Conc 32 % (32-34); Mean Corpuscular Volume 88 fl (84-94); Monocytes # (Auto) 0.4 K/mm3 (0.0-0.8); Monocytes % (Auto) 13.8 % (0.0-7.3); Platelet Count 114 K/mm3 (140-440); Red Blood Count 4.25 M/mm3 (3.65-5.03); Red Cell Distribution Width 17.2 % (13.2-15.2)
[2020-07-10 04:43] LABS: INR 1.42 (0.87-1.13)
[2020-07-10 04:44] LABS: Partial Thromboplastin Time 39.7 Sec. (24.2-36.6)
[2020-07-10 06:23] VITALS: BP 154/68
== END 2020-07-10 09:45 | disposition home or self-care (01) ==
LOC: ED 02:35
DX: S30.0XXA Contusion of lower back and pelvis, initial encounter (principal); I10 Essential (primary) hypertension; E11.9 Type 2 diabetes mellitus without complications; Z86.73 Personal history of transient ischemic attack (TIA), and cerebral infarction without residual deficits; Z79.899 Other long term (current) drug therapy; Z79.4 Long term (current) use of insulin; W05.0XXA Fall from non-moving wheelchair, initial encounter; Y93.89 Activity, other specified; Y92.89 Other specified places as the place of occurrence of the external cause; Y99.8 Other external cause status
CPT/HCPCS: 36415; 70450; 72100; 80048; 85025; 85610; 85730

== ENCOUNTER 2020-07-10 13:21 | Emergency (ER) | payer MEDICARE, OTHER ==
[2020-07-10 15:24] VITALS: BP 159/79
--- NOTE | 2020-07-10 15:51 | Emergency Department Report ---
ED General Adult HPI - General Chief complaint: Fall Stated complaint: WORSENING BLINDNESS Time Seen by Provider: 07/10/20 15:24 Source: EMS Mode of arrival: Stretcher Limitations: Other - History of Present Illness Initial comments: Patient presents to the emergency department via EMS for evaluation for dialysis. Patient has been seen in this emergency department with the last 24 hours for evaluation of a fall. Patient appears to have some mild dementia is not able to answer questions appropriately. I contacted the patient's power of insurance defense attorney who is Malia Jaquez. She tells me that the main reason for the patient presented to the emergency department is for dialysis which he missed this morning due to being in the hospital the prior night. She is also concerned because the patient has a history of hemorrhoids and has had blood in the stool but does not allow anybody to check. She also states that the patient has significant diabetic neuropathy and has had peripheral visual loss bilaterally for the last couple years with him losing complete vision in the left eye and now complaining of having visual changes in the right eye. Upon me initially asking the patient if he is having problems seeing out of his right he tells me no and when I hold the pain in front of his face he says this opinion. Patient denies any chest pain, shortness breath, headache. -: Sudden Severity scale (0 -10): 0 Improves with: none Worsens with: none Associated Symptoms: denies other symptoms Treatments Prior to Arrival: none - Related Data Home Medications Medication Instructions Recorded Confirmed Last Taken Cholecalciferol Vit D3 [Vitamin D3 1,000 unit PO QDAY 05/19/19 05/19/19 Unknown 1,000 UNIT TAB] Insulin Aspart (Nf) [NovoLOG 3 unit SQ TID 05/19/19 05/19/19 Unknown Flexpen] Insulin Glargine,Hum.rec.anlog 4 unit SQ HS 05/19/19 05/19/19 Unknown [Basaglar Kwikpen U-100] Sevelamer Carbonate [Renvela] 800 mg PO TIDWM 05/19/19 05/19/19 Unknown Previous Rx's Medication Instructions Recorded Last Taken Type Apixaban [Eliquis] 2.5 mg PO BID tablet 05/22/19 Unknown Rx AtorvaSTATin 40 mg PO DAILY #30 05/22/19 Unknown Rx AtorvaSTATin [Lipitor] 40 mg PO QHS tablet 05/22/19 Unknown Rx Clopidogrel [Plavix] 75 mg PO QDAY #30 05/22/19 Unknown Rx Folic Acid 1 mg PO DAILY #30 05/22/19 Unknown Rx Hydralazine HCl 50 mg PO TID #90 05/22/19 Unknown Rx ISOSORBIDE MONOnitrate [Imdur ER] 30 mg PO DAILY #30 05/22/19 Unknown Rx carvediloL [Coreg] 12.5 mg PO BID #60 05/22/19 Unknown Rx lisinopriL [Zestril TAB] 20 mg PO QDAY #30 05/22/19 Unknown Rx Allergies Allergy/AdvReac Type Severity Reaction Status Date / Time No Known Allergies Allergy Verified 07/10/20 15:12 ED Review of Systems ROS: Stated complaint: WORSENING BLINDNESS Other details as noted in HPI Comment: All other systems reviewed and negative Constitutional: denies: chills, fever Eyes: denies: eye pain, eye discharge, vision change ENT: denies: ear pain, throat pain Respiratory: denies: cough, shortness of breath, wheezing Cardiovascular: denies: chest pain, palpitations Endocrine: no symptoms reported Gastrointestinal: denies: abdominal pain, nausea, diarrhea Genitourinary: denies: urgency, dysuria Musculoskeletal: denies: back pain, joint swelling, arthralgia Skin: denies: rash, lesions Neurological: denies: headache, weakness, paresthesias Psychiatric: denies: anxiety, depression Hematological/Lymphatic: denies: easy bleeding, easy bruising ED Past Medical Hx - Past Medical History Hx Hypertension: Yes Hx CVA: Yes (x3) Hx Congestive Heart Failure: No Hx Diabetes: Yes Hx Renal Disease: Yes (HD MWF) Hx Tuberculosis: No Hx HIV: No Additional medical history: afib on Coumadin - Surgical History Additional Surgical History: Hemodialysis shunt Left upper arm - Social History Smoking Status: Never Smoker Substance Use Type: None - Medications Home Medications: Home Medications Medication Instructions Recorded Confirmed Last Taken Type Cholecalciferol Vit D3 [Vitamin D3 1,000 unit PO QDAY 05/19/19 05/19/19 Unknown History 1,000 UNIT TAB] Insulin Aspart (Nf) [NovoLOG 3 unit SQ TID 05/19/19 05/19/19 Unknown History Flexpen] Insulin Glargine,Hum.rec.anlog 4 unit SQ HS 05/19/19 05/19/19 Unknown History [Basaglar Kwikpen U-100] Sevelamer Carbonate [Renvela] 800 mg PO TIDWM 05/19/19 05/19/19 Unknown History Apixaban [Eliquis] 2.5 mg PO BID tablet 05/22/19 Unknown Rx AtorvaSTATin 40 mg PO DAILY #30 05/22/19 Unknown Rx AtorvaSTATin [Lipitor] 40 mg PO QHS tablet 05/22/19 Unknown Rx Clopidogrel [Plavix] 75 mg PO QDAY #30 05/22/19 Unknown Rx Folic Acid 1 mg PO DAILY #30 05/22/19 Unknown Rx Hydralazine HCl 50 mg PO TID #90 05/22/19 Unknown Rx ISOSORBIDE MONOnitrate [Imdur ER] 30 mg PO DAILY #30 05/22/19 Unknown Rx carvediloL [Coreg] 12.5 mg PO BID #60 05/22/19 Unknown Rx lisinopriL [Zestril TAB] 20 mg PO QDAY #30 05/22/19 Unknown Rx ED Physical Exam - General Limitations: Other General appearance: alert, in no apparent distress - Head Head exam: Present: atraumatic, normocephalic - Eye Eye exam: Present: normal appearance, EOMI - ENT ENT exam: Present: mucous membranes moist - Neck Neck exam: Present: normal inspection - Respiratory Respiratory exam: Present: normal lung sounds bilaterally. Absent: respiratory distress - Cardiovascular Cardiovascular Exam: Present: regular rate, normal rhythm. Absent: systolic murmur, diastolic murmur, rubs, gallop - GI/Abdominal GI/Abdominal exam: Present: soft, normal bowel sounds. Absent: distended, tende rness - Rectal Rectal exam: Present: deferred - Extremities Exam Extremities exam: Present: normal inspection - Back Exam Back exam: Present: normal inspection - Neurological Exam Neurological exam: Present: alert, oriented X3, CN II-XII intact. Absent: motor sensory deficit - Psychiatric Psychiatric exam: Present: normal affect, normal mood - Skin Skin exam: Present: warm, dry, intact, normal color. Absent: rash ED Course Vital Signs 07/10/20 15:23 Temperature 97.3 F L Pulse Rate 96 H Respiratory 20 Rate Blood Pressure 159/79 [Right] O2 Sat by Pulse 95 Oximetry ED Medical Decision Making - Lab Data Result diagrams: 07/10/20 15:30 07/10/20 15:30 Lab Results 07/10/20 07/10/20 07/10/20 Range/Units 15:30 15:30 15:30 WBC 3.1 L (4.5-11.0) K/mm3 RBC 4.26 (3.65-5.03) M/mm3 Hgb 12.0 (11.8-15.2) gm/dl Hct 37.2 (35.5-45.6) % MCV 87 (84-94) fl MCH 28 (28-32) pg MCHC 32 (32-34) % RDW 17.2 H (13.2-15.2) % Plt Count 116 L (140-440) K/mm3 Lymph % (Auto) 22.1 (13.4-35.0) % [place] % (Auto) 14.7 H (0.0-7.3) % Eos % (Auto) 6.7 H (0.0-4.3) % Baso % (Auto) 1.9 H (0.0-1.8) % Lymph # (Auto) 0.7 L (1.2-5.4) K/mm3 [place] # (Auto) 0.5 (0.0-0.8) K/mm3 Eos # (Auto) 0.2 (0.0-0.4) K/mm3 Baso # (Auto) 0.1 (0.0-0.1) K/mm3 Seg Neutrophils % 54.6 (40.0-70.0) % Seg Neutrophils # 1.7 L (1.8-7.7) K/mm3 PT 16.9 H (12.2-14.9) Sec. INR 1.37 H (0.87-1.13) APTT 38.3 H (24.2-36.6) Sec. Sodium 133 L (137-145) mmol/L Potassium 4.9 (3.6-5.0) mmol/L Chloride 95.3 L (98-107) mmol/L Carbon Dioxide 25 (22-30) mmol/L Anion Gap 18 mmol/L BUN 53 H (9-20) mg/dL Creatinine 5.7 H (0.8-1.3) mg/dL Estimated GFR 12 ml/min BUN/Creatinine Ratio 9 % Glucose 143 H (75-100) mg/dL Calcium 8.6 (8.4-10.2) mg/dL Total Bilirubin 0.40 (0.1-1.2) mg/dL AST 12 (5-40) units/L ALT 6 L (7-56) units/L Alkaline Phosphatase 102 (35-129) units/L Total Protein 6.0 L (6.3-8.2) g/dL Albumin 3.7 L (3.9-5) g/dL Albumin/Globulin Ratio 1.6 % Blood Type Antibody Screen 07/10/20 Range/Units 15:31 WBC (4.5-11.0) K/mm3 RBC (3.65-5.03) M/mm3 Hgb (11.8-15.2) gm/dl Hct (35.5-45.6) % MCV (84-94) fl MCH (28-32) pg MCHC (32-34) % RDW (13.2-15.2) % Plt Count (140-440) K/mm3 Lymph % (Auto) (13.4-35.0) % [place] % (Auto) (0.0-7.3) % Eos % (Auto) (0.0-4.3) % Baso % (Auto) (0.0-1.8) % Lymph # (Auto) (1.2-5.4) K/mm3 [place] # (Auto) (0.0-0.8) K/mm3 Eos # (Auto) (0.0-0.4) K/mm3 Baso # (Auto) (0.0-0.1) K/mm3 Seg Neutrophils % (40.0-70.0) % Seg Neutrophils # (1.8-7.7) K/mm3 PT (12.2-14.9) Sec. INR (0.87-1.13) APTT (24.2-36.6) Sec. Sodium (137-145) mmol/L Potassium (3.6-5.0) mmol/L Chloride (98-107) mmol/L Carbon Dioxide (22-30) mmol/L Anion Gap mmol/L BUN (9-20) mg/dL Creatinine (0.8-1.3) mg/dL Estimated GFR ml/min BUN/Creatinine Ratio % Glucose (75-100) mg/dL Calcium (8.4-10.2) mg/dL Total Bilirubin (0.1-1.2) mg/dL AST (5-40) units/L ALT (7-56) units/L Alkaline Phosphatase (35-129) units/L Total Protein (6.3-8.2) g/dL Albumin (3.9-5) g/dL Albumin/Globulin Ratio % Blood Type O POSITIVE Antibody Screen Negative - Medical Decision Making The patient refused to let me do a rectal exam multiple times during his stay in the emergency department. Patient has waxing and waning of his mental status and initially is able to tell me where he is at and upon returning to his room later he appears to be confused which then ultimately resolves on further evaluation. Patient also initially states he is able to see out of the right eye and upon further evaluation of the patient twice he states is not able to see but when I hold a pen the front of his right eye on the fourth reevaluation the patient states that she have a pain in front of her face. I spoke to the patient's power of insurance defense attorney after speaking to the machine repairman who is Dr. Robles and explained to her that the patient's laboratory values do not suggest the need for emergent dialysis. She states that the patient is okay to be discharged back to the assisted and she will call the dialysis center in the morning to have him dialyzed or to just wait to Friday. Critical care attestation.: If time is entered above; I have spent that time in minutes in the direct care of this critically ill patient, excluding procedure time. ED Disposition Clinical Impression: Chronic kidney disease requiring chronic dialysis, Diabetic neuropathy, Diabetic retinopathy Disposition: TO HOME OR SELFCARE Is pt being admited?: No Does the pt Need Aspirin: No Condition: Stable Instructions: Diabetes Mellitus Type 2 in Adults (ED) Additional Instructions: Return if worse Referrals: PRIMARY CAREMD [Primary Care Provider] - 3-5 Days ANA LAGOS MD [Staff Physician] - 3-5 Days Time of Disposition: 19:35
[2020-07-10 16:18] LABS: Albumin 3.7 g/dL (3.9-5); Calcium 8.6 mg/dL (8.4-10.2)
[2020-07-10 16:20] LABS: Basophils # (Auto) 0.1 K/mm3 (0.0-0.1); Basophils % (Auto) 1.9 % (0.0-1.8); Eosinophils # (Auto) 0.2 K/mm3 (0.0-0.4); Eosinophils % (Auto) 6.7 % (0.0-4.3); Hematocrit 37.2 % (35.5-45.6); Lymphocytes # (Auto) 0.7 K/mm3 (1.2-5.4); Lymphocytes % (Auto) 22.1 % (13.4-35.0); Mean Corpuscular HGB Conc 32 % (32-34); Mean Corpuscular Volume 87 fl (84-94); Monocytes # (Auto) 0.5 K/mm3 (0.0-0.8); Monocytes % (Auto) 14.7 % (0.0-7.3); Platelet Count 116 K/mm3 (140-440); Red Blood Count 4.26 M/mm3 (3.65-5.03); Red Cell Distribution Width 17.2 % (13.2-15.2)
[2020-07-10 16:28] LABS: INR 1.37 (0.87-1.13)
[2020-07-10 16:29] LABS: Partial Thromboplastin Time 38.3 Sec. (24.2-36.6)
== END 2020-07-11 00:07 | disposition home or self-care (01) ==
LOC: ED 13:21
DX: E11.22 Type 2 diabetes mellitus with diabetic chronic kidney disease (principal); I12.9 Hypertensive chronic kidney disease with stage 1 through stage 4 chronic kidney disease, or unspecified chronic kidney disease; N18.9 Chronic kidney disease, unspecified; E11.40 Type 2 diabetes mellitus with diabetic neuropathy, unspecified; E11.319 Type 2 diabetes mellitus with unspecified diabetic retinopathy without macular edema; R51.9 Headache, unspecified; Z98.890 Other specified postprocedural states; Z79.4 Long term (current) use of insulin; Z79.899 Other long term (current) drug therapy
CPT/HCPCS: 36415; 70450; 72100; 80048; 80053; 85025; 85610; 85730; 86850; 86900; 86901